=== PATIENT | male | born 1965 | race African-American/Black ===

== ENCOUNTER 2019-12-15 10:53 | Outpatient (CLI) | payer OTHER ==
--- NOTE | 2019-12-15 13:12 | RAD ---
2 VIEWS LUMBAR SPINE: Date: 12/15/2019 COMPARISON: None. HISTORY: Low back pain. FINDINGS: Clips in the right upper quadrant suggestion prior cholecystectomy. There is multilevel lower lumbar spine facet hypertrophy, most prominent at the L4-5 and L5-S1 levels. Anterior osteophyte formation a t L3-4. No acute fracture or dislocation. Lumbar pedicles appear intact on frontal imaging. IMPRESSION: Bilateral lower lumbar spine facet hypertrophy. No acute fracture or dislocation. If there are radicu lar symptoms, MRI advised. POS: OFF
== END 2019-12-15 10:54 | disposition home or self-care (01) ==
LOC: BICRAD 10:53
DX: M54.5 Low back pain (principal); M47.816 Spondylosis without myelopathy or radiculopathy, lumbar region
CPT/HCPCS: 72100

== ENCOUNTER 2020-02-03 21:28 | Inpatient (IN) | payer OTHER ==
[2020-02-03 22:51] LABS: #Lymphocytes 0.5 thou/uL (1.20-3.40); #Monocytes 0.7 thou/uL (0.11-0.59); #Neutrophils 3.8 thou/uL (1.40-6.50); %Basophils 0.4 % (0.0-1.0); %Eosinophils 0.3 % (0.0-10.0); %Lymphocytes 10.5 % (21.0-51.0); %Monocytes 13.5 % (0.0-10.0); %Neutrophils 75.4 % (42.0-75.0); Hemoglobin 16.2 g/dL (14.0-18.0); Mean Corpuscular HGB CONC 33.5 g/dL (32.0-36.0); Mean Corpuscular Hemoglobin 31.8 pg (27.0-31.0); Mean Corpuscular Volume 95.1 fL (78.0-98.0); Mean Platelet Volume 7.1 fL (7.4-10.4); Platelet Count 197 thou/uL (130-400); RBC Distribution Width 12.5 % (11.5-14.5); Red Blood Cell (RBC) Count 5.09 mill/uL (4.70-6.10); White Blood Cell (WBC) Count 5.1 thou/uL (4.8-10.8)
[2020-02-03 23:09] LABS: ALT (SGPT) 16 U/L (8-55); AST (SGOT) 23 U/L (5-34); Albumin 4.3 g/dL (3.5-5.0); Alkaline Phosphatase 82 U/L (40-110); Anion Gap 13 mmol/L (10-20); BUN (Urea Nitrogen) 7 mg/dL (8.4-25.7); Bilirubin, Total 0.5 mg/dL (0.2-1.2); Calc. Creatinine Clearance 0 mL/min (70-130); Calcium 9.7 mg/dL (7.8-10.44); Carbon Dioxide 25 mmol/L (22-29); Chloride 99 mmol/L (98-107); Estimated GFR-MDRD 79; Globulin 4.4 g/dL (2.4-3.5); Glucose 146 mg/dL (70-105); Potassium 4.2 mmol/L (3.5-5.1); Protein, Total 8.7 g/dL (6.0-8.3); Sodium 133 mmol/L (136-145)
--- NOTE | 2020-02-03 23:14 | RAD ---
PORTABLE CHEST: 02/03/20 PROVIDED CLINICAL HISTORY: Cough and fever. FINDINGS: Comparison 09/22/17. Cardiac and mediastinal silhouette is unchanged in appearance. No focal consolidation, pleural fluid or pneumothorax apparent. IMPRESSION: No evidence for an acute cardiopulmonary process. POS: RICHIE
[2020-02-03] MEDS ORDERED: Acetaminophen 500 MG TAB ONE (23:24)
[2020-02-04] MEDS ORDERED: Calcium Carbonate 500 MG ChewTAB PO PRN (02:10)
[2020-02-04] MEDS ORDERED: Ondansetron ODT 4 MG TAB PO PRN (02:10)
[2020-02-04] MEDS ORDERED: Acetaminophen 650 MG Suppository PR PRN (02:10)
[2020-02-04] MEDS ORDERED: Ondansetron PF 4 MG/2 ML Vial IVP PRN (02:10)
[2020-02-04] MEDS ORDERED: Guaifenesin DM 100-10/5 ML UDCUP PO PRN (02:21)
--- NOTE | 2020-02-04 02:25 | PDOC.HHP ---
Hospitalist HPI - History of Present Illness Cough x 3 days History of Present Illness: PCP: Dr Rae The patient is a 54/M with no significant PMH that presents for above complaint. The patient reports rhinorrhea, productive cough x 2-3 days. Then this evening, developed subjective fever and malaise. Started to feel short of breath. Denies chest pain, heart palpitations. Denies orthopnea or lower extremity swelling. Denies nausea, vomiting or diarrhea. Denies dysuria. Reports that his sister was recently diagnosed with COVID-19. He last came into contact with her approximately 10-14 days ago. ED Course: T 100.1F, BP 171/65, HR 89, RR 24, 92% RA - placed on 2L NC Sp02 94-97% CXR - WBC 5.1 Given 1gm tylenol Hospitalist ROS - Review of Systems Constitutional: reports: fever, malaise Eyes: denies: pain, vision change, conjunctivae inflammation, eyelid inflammation, redness, other ENT: reports: nose discharge. denies: ear pain, ear discharge, nose pain, throat pain, throat swelling Respiratory: reports: cough, shortness of breath. denies: hemoptysis, sputum, wheezing Cardiovascular: denies: chest pain, palpitations, orthopnea, edema, light headedness Gastrointestinal: denies: nausea, vomiting, abdominal pain, diarrhea, melena, hematochezia Genitourinary: denies: dysuria, frequency, incontinence, hematuria, retention, other Skin: denies: rash, lesions, nam[place], bruising, other Neurological: denies: numbness, incoordination, change in speech, confusion Hospitalist History - Past Medical History Source: patient Cardiac: reports: no pertinent history Pulmonary: reports: no pertinent history DEHORNER: reports: no pertinent history Gastrointestinal: reports: no pertinent history Heme/Onc: reports: no pertinent history Hepatobiliary: reports: no pertinent history Psych: reports: no pertinent history Musculoskeletal: reports: no pertinent history Rheumatologic: reports: no pertinent history Infectious Disease: reports: no pertinent history ENT: reports: no pertinent history Renal/: reports: no pertinent history Endocrine: reports: no pertinent history - Past Surgical History Past Surgical History: reports: Appendectomy, Cholecystectomy - Family History Family History: reports: no pertinent history (patient states unknown family history) - Social History Smoking Status: Current every day smoker Tobacco Type: cigarettes Alcohol: reports: None Drugs: reports: none Living Situation: With Family Occupation: Lives with mother in [place], disabled Activity level: independent ambulation - Exam General Appearance: NAD, ill appearing General - other findings: non toxic Eye: PERRL Eye - other findings: sclera injected bilaterally ENT: normocephalic atraumatic Neck: supple, no JVD Heart: RRR, no murmur, no gallops, no rubs, normal peripheral pulses Respiratory: no wheezes, no rales, no ronchi, no tachypnea Respiratory - other findings: diminished throughout Gastrointestinal: soft, non-tender, non-distended, normal bowel sounds, no guarding, no rigidity Extremities: no cyanosis, no edema Skin: no rashes Psychiatric: A&O x 3, flat affect, somnolent Hospitalist Results - Labs Result Diagrams: 02/03/20 22:27 02/03/20 22:27 Lab results: WBC 5.1 thou/uL (4.8-10.8) 02/03/20 22:27 Hgb 16.2 g/dL (14.0-18.0) 02/03/20 22:27 Hct 48.4 % (42.0-52.0) 02/03/20 22: MCV 95.1 fL (78.0-98.0) 02/03/20 22:27 Plt Count 197 thou/uL (130-400) 02/03/20 22:27 Neutrophils % 75.4 % (42.0-75.0) H 02/03/20 22:27 Sodium 133 mmol/L (136-145) L 02/03/20 22:27 Potassium 4.2 mmol/L (3.5-5.1) 02/03/20 22:27 Chloride 99 mmol/L (98-107) 02/03/20 22:27 Carbon Dioxide 25 mmol/L (22-29) 02/03/20 22:27 BUN 7 mg/dL (8.4-25.7) L 02/03/20 22:27 Creatinine 1.17 mg/dL (0.7-1.3) 02/03/20 22:27 Glucose 146 mg/dL (70-105) H 02/03/20 22:27 Calcium 9.7 mg/dL (7.8-10.44) 02/03/20 22:27 Total Bilirubin 0.5 mg/dL (0.2-1.2) 02/03/20 22:27 AST 23 U/L (5-34) 02/03/20 22:27 ALT 16 U/L (8-55) 02/03/20 22:27 Alkaline Phosphatase 82 U/L (40-110) 02/03/20 22:27 Serum Total Protein 8.7 g/dL (6.0-8.3) H 02/03/20 22:27 Albumin 4.3 g/dL (3.5-5.0) 02/03/20 22:27 - Radiology Interpretation Chest x-ray Status: report reviewed by tn Hospitalist H&P A/P - Problem (1) SOB (shortness of breath) Code(s): R06.02 - SHORTNESS OF BREATH Status: Acute Assessment and Plan: Admit to telemetry unit, observation status Expected length of stay less than 2 midnights Patient hypoxic, possible COVID exposure CXR negative COVID results pending Droplet isolation Supportive care, tylenol, oxygen Repeat CXR in am (2) Hypoxia Code(s): R09.02 - HYPOXEMIA Status: Acute Assessment and Plan: Patient maintaining sp02 94% 2l NC, no respiratory distress or increased WOB CXR negative COVID results pending Droplet isolation Supportive care, tylenol, oxygen Repeat CXR in am (3) Hyponatremia Code(s): E87.1 - HYPO-OSMOLALITY AND HYPONATREMIA Status: Acute Assessment and Plan: Mild, 133 Will recheck in am (4) Tobacco abuse Code(s): Z72.0 - TOBACCO USE Status: Chronic Assessment and Plan: 1ppd x 20 years unwilling to quit NRT Smoking cessation counseling - Plan Plan: DVT and GI prophylaxis Full Code ADDIE Jaiden Marcelo (mother) Discussed case with Dr. Danielle
[2020-02-04 05:50] LABS: Anion Gap 14 mmol/L (10-20); BUN (Urea Nitrogen) 9 mg/dL (8.4-25.7); Calc. Creatinine Clearance 127 mL/min (70-130); Calcium 9.6 mg/dL (7.8-10.44); Carbon Dioxide 23 mmol/L (22-29); Chloride 99 mmol/L (98-107); Estimated GFR-MDRD 87; Glucose 132 mg/dL (70-105); Potassium 4.3 mmol/L (3.5-5.1); Sodium 132 mmol/L (136-145)
[2020-02-04 05:53] LABS: Hemoglobin 16.1 g/dL (14.0-18.0); Mean Corpuscular HGB CONC 33.1 g/dL (32.0-36.0); Mean Corpuscular Hemoglobin 31.6 pg (27.0-31.0); Mean Corpuscular Volume 95.7 fL (78.0-98.0); RBC Distribution Width 12.5 % (11.5-14.5); Red Blood Cell (RBC) Count 5.08 mill/uL (4.70-6.10)
[2020-02-04 06:23] LABS: Band 3 % (5-11); Lymphocytes 26 % (21-51); MDiff Complete? YES; Mean Platelet Volume 7.1 fL (7.4-10.4); Monocytes 15 % (0-10); Neutrophil 55 % (42-75); Platelet Count 189 thou/uL (130-400); White Blood Cell (WBC) Count 3.3 thou/uL (4.8-10.8)
[2020-02-04] MEDS ORDERED: PROVENTIL INHALER 6.7 G (200 INHALATIONS) INH PRN (08:20)
[2020-02-04] MEDS ORDERED: Albuterol Sulfate 2.5 mg/3 ml Neb NEB PRN (08:25)
[2020-02-04] MEDS: Enoxaparin Sodium 40 MG/0.4 ML SYRINGE SC SCH (08:57)
[2020-02-04] MEDS: Multivit, Therapeutic 1 TAB PO SCH ×2 (08:57→10:36)
[2020-02-04] MEDS: Famotidine 20 MG TAB PO SCH ×2 (08:57→20:08)
[2020-02-04] MEDS ORDERED: Nicotine 14 MG PATCH TD SCH (09:00)
[2020-02-04] MEDS: Cefepime 1 GM in Sodium Chloride 0.9% 100 ML IVPB SCH ×2 (10:35→20:08)
[2020-02-04] MEDS: Doxycycline 100 MG CAP PO SCH ×2 (10:36→20:08)
[2020-02-04] MEDS: Saccharomyces boulardii 250 MG CAP PO SCH (10:36)
[2020-02-04] MEDS: Acetaminophen 325 MG TAB PO PRN (12:49)
[2020-02-05] MEDS: Acetaminophen 325 MG TAB PO PRN ×3 (04:10→23:30)
[2020-02-05 05:36] LABS: ALT (SGPT) 21 U/L (8-55); AST (SGOT) 36 U/L (5-34); Albumin 4.1 g/dL (3.5-5.0); Alkaline Phosphatase 76 U/L (40-110); Anion Gap 14 mmol/L (10-20); BUN (Urea Nitrogen) 12 mg/dL (8.4-25.7); Bilirubin, Total 0.4 mg/dL (0.2-1.2); CRP (Inflammatory) 0.66 mg/dL (= or < 0.5); Calc. Creatinine Clearance 109 mL/min (70-130); Calcium 9.3 mg/dL (7.8-10.44); Carbon Dioxide 24 mmol/L (22-29); Chloride 97 mmol/L (98-107); Estimated GFR-MDRD 73; Globulin 4.3 g/dL (2.4-3.5); Glucose 131 mg/dL (70-105); Potassium 4.3 mmol/L (3.5-5.1); Protein, Total 8.4 g/dL (6.0-8.3); Sodium 131 mmol/L (136-145)
[2020-02-05 05:50] LABS: Hemoglobin 16.9 g/dL (14.0-18.0); Mean Corpuscular HGB CONC 32.7 g/dL (32.0-36.0); Mean Corpuscular Hemoglobin 31.2 pg (27.0-31.0); Mean Corpuscular Volume 95.4 fL (78.0-98.0); Mean Platelet Volume 7.5 fL (7.4-10.4); Platelet Count 179 thou/uL (130-400); RBC Distribution Width 12.4 % (11.5-14.5); Red Blood Cell (RBC) Count 5.41 mill/uL (4.70-6.10); White Blood Cell (WBC) Count 3.8 thou/uL (4.8-10.8)
[2020-02-05 05:57] LABS: Band 5 % (5-11); Lymphocytes 42 % (21-51); MDiff Complete? YES; Monocytes 14 % (0-10); Neutrophil 39 % (42-75)
[2020-02-05] MEDS: Saccharomyces boulardii 250 MG CAP PO SCH (08:33)
[2020-02-05] MEDS: Multivit, Therapeutic 1 TAB PO SCH ×2 (08:33→10:08)
[2020-02-05] MEDS: Famotidine 20 MG TAB PO SCH ×2 (08:33→20:40)
[2020-02-05] MEDS: Doxycycline 100 MG CAP PO SCH ×2 (08:33→20:40)
[2020-02-05] MEDS: Enoxaparin Sodium 40 MG/0.4 ML SYRINGE SC SCH (08:34)
[2020-02-05] MEDS: Cefepime 1 GM in Sodium Chloride 0.9% 100 ML IVPB SCH ×2 (10:11→20:40)
--- NOTE | 2020-02-05 12:22 | PDOC.HOSPP ---
- Subjective Encounter Date: 02/05/20 Encounter Time: 10:45 Subjective: feels better, no sob is ambulating in room wants to go home - Objective Vital Signs & Weight: Vital Signs (12 hours) Temp Pulse Resp BP BP Pulse Ox 02/05/20 07:45 99.2 F 72 16 97/52 L 95 02/05/20 04:07 100 F H 79 18 119/58 L 97 Weight Weight 249 lb 14.4 oz I&O: 02/04/20 02/05/20 02/06/20 06:59 06:59 06:59 Intake Total 100 Output Total 500 Balance 100 -500 Result Diagrams: 02/05/20 04:58 02/05/20 04:58 Hospitalist ROS - Medication Medications: Active Medications Generic Name Dose Route Start Last Admin Trade Name Freq PRN Reason Stop Dose Admin Acetaminophen 650 mg 02/04/20 02:10 02/05/20 04:10 Tylenol PO 650 mg Q4H PRN Administration Headache/Fever/Mild Pain (1-3) Doxycycline Hyclate 100 mg 02/04/20 09:00 02/05/20 08:33 Vibramycin PO 100 mg BID MARY Administration Enoxaparin Sodium 40 mg 02/04/20 09:00 02/05/20 08:34 Lovenox SC 40 mg 0900 MARY Administration Famotidine 20 mg 02/04/20 09:00 02/05/20 08:33 Pepcid PO 20 mg BID MARY Administration Cefepime HCl 1 gm/ Sodium 100 mls @ 200 mls/hr 02/04/20 09:00 02/05/20 10:11 Chloride IVPB 100 mls 0900,2100 MARY Administration Multivitamins 1 tab 02/04/20 09:00 02/05/20 08:33 Theragran PO 1 tab DAILY MARY Administration Multivitamins 1 tab 02/04/20 09:00 02/05/20 10:08 Theragran PO Not Given DAILY MARY Saccharomyces Boulardii 250 mg 02/04/20 09:00 02/05/20 08:33 Florastor PO 250 mg DAILY MARY Administration Sodium Chloride 10 ml 02/04/20 02:10 02/05/20 10:12 Flush - Normal Saline IVF 10 ml PRN PRN Administration Saline Flush - Exam General Appearance: awake alert Eye: PERRL, anicteric sclera ENT: no oropharyngeal lesions, moist mucosa Neck: supple, no JVD Heart: RRR, no murmur Respiratory: no wheezes, no rales Gastrointestinal: soft, non-tender, non-distended, normal bowel sounds Extremities: no cyanosis, no edema Neurological: cranial nerve grossly intact, no focal deficits Psychiatric: normal affect, A&O x 3 Hosp A/P (1) COVID-19 Code(s): U07.1 - COVID-19 Status: Suspected (2) Acute respiratory failure with hypoxemia Code(s): J96.01 - ACUTE RESPIRATORY FAILURE WITH HYPOXIA Status: Acute (3) Obesity Code(s): E66.9 - OBESITY, UNSPECIFIED Status: Chronic Qualifiers: Obesity classification: adult class 3 (BMI >= 40) Body mass index: BMI 40.0 -44.9 (4) Tobacco use Code(s): Z72.0 - TOBACCO USE Status: Chronic - Plan is stable on nasal oxygen await covid results on doxy, cefepime his sister was +ve for covid and mother is hospitalized awaiting her covid results as well is ambulating in room hemostable tmax of 100
[2020-02-06] MEDS: Doxycycline 100 MG CAP PO SCH (08:05)
[2020-02-06] MEDS: Cefepime 1 GM in Sodium Chloride 0.9% 100 ML IVPB SCH (08:05)
[2020-02-06] MEDS: Famotidine 20 MG TAB PO SCH ×2 (08:06→20:35)
[2020-02-06] MEDS: Enoxaparin Sodium 40 MG/0.4 ML SYRINGE SC SCH (08:06)
[2020-02-06] MEDS: Saccharomyces boulardii 250 MG CAP PO SCH (08:06)
[2020-02-06] MEDS: Multivit, Therapeutic 1 TAB PO SCH ×2 (08:06)
--- NOTE | 2020-02-06 10:21 | PDOC.HOSPP ---
- Subjective Encounter Date: 02/06/20 Encounter Time: 09:30 Subjective: has fever, no sob or cough or chest pain is eating and ambulating in room - Objective Vital Signs & Weight: Vital Signs (12 hours) Temp Pulse Resp BP BP Pulse Ox 02/06/20 07:54 99.3 F 89 18 135/61 94 L 02/06/20 06:36 99.4 F 02/06/20 04:35 100.2 F H 89 18 111/54 L 93 L 02/05/20 23:23 100.3 F H 87 18 129/53 L 92 L Weight Weight 249 lb 14.4 oz I&O: 02/05/20 02/06/20 02/07/20 06:59 06:59 06:59 Output Total 500 Balance -500 Result Diagrams: 02/05/20 04:58 02/05/20 04:58 Hospitalist ROS - Medication Medications: Active Medications Generic Name Dose Route Start Last Admin Trade Name Freq PRN Reason Stop Dose Admin Acetaminophen 650 mg 02/04/20 02:10 02/05/20 23:30 Tylenol PO 650 mg Q4H PRN Administration Headache/Fever/Mild Pain (1-3) Doxycycline Hyclate 100 mg 02/04/20 09:00 02/06/20 08:05 Vibramycin PO 100 mg BID MARY Administration Enoxaparin Sodium 40 mg 02/04/20 09:00 02/06/20 08:06 Lovenox SC 40 mg 0900 MARY Administration Famotidine 20 mg 02/04/20 09:00 02/06/20 08:06 Pepcid PO 20 mg BID MARY Administration Cefepime HCl 1 gm/ Sodium 100 mls @ 200 mls/hr 02/04/20 09:00 02/06/20 08:05 Chloride IVPB 100 mls 0900,2100 MARY Administration Multivitamins 1 tab 02/04/20 09:00 02/06/20 08:06 Theragran PO 1 tab DAILY AMRY Administration Multivitamins 1 tab 02/04/20 09:00 02/06/20 08:06 Theragran PO Not Given DAILY MARY Saccharomyces Boulardii 250 mg 02/04/20 09:00 02/06/20 08:06 Florastor PO 250 mg DAILY MARY Administration Sodium Chloride 10 ml 02/04/20 02:10 02/05/20 20:40 Flush - Normal Saline IVF 10 ml PRN PRN Administration Saline Flush - Exam General Appearance: awake alert Eye: PERRL, anicteric sclera ENT: no oropharyngeal lesions, moist mucosa Neck: supple, no JVD Heart: RRR, no murmur Respiratory: no wheezes, no rales Gastrointestinal: soft, non-tender, non-distended, normal bowel sounds Extremities: no cyanosis, no edema Neurological: cranial nerve grossly intact, no focal deficits Psychiatric: normal affect, A&O x 3 Hosp A/P (1) COVID-19 Code(s): U07.1 - COVID-19 Status: Suspected (2) Acute respiratory failure with hypoxemia Code(s): J96.01 - ACUTE RESPIRATORY FAILURE WITH HYPOXIA Status: Acute (3) Obesity Code(s): E66.9 - OBESITY, UNSPECIFIED Status: Chronic Qualifiers: Obesity classification: adult class 3 (BMI >= 40) Body mass index: BMI 40.0 -44.9 (4) Tobacco use Code(s): Z72.0 - TOBACCO USE Status: Chronic (5) DM type 2 (diabetes mellitus, type 2) Status: Suspected Qualifiers: Diabetes mellitus buttermaker continuous churn insulin use: without buttermaker continuous churn use - Plan is stable on nasal oxygen await covid results on doxy, cefepime his sister was +ve for covid and is in icu at [facility] and mother is hospitalized here awaiting her covid results as well is ambulating in room hemostable tmax of 100 Has high likelyhood of covid 19, if first test is -ve he can go home in am and quarantine for 12 days in total isolation says he can cook for himself and has his siblings to check on him on phone to see if he is doing ok if dc'd home he has to come out of nasal canula oxygen prior to dc or repeat cxr will be done to see if his lung findings are stable for home O2 if needed. Hb A1c, ferritin and crp levels in am
[2020-02-06] MEDS ORDERED: Hydroxychloroquine Sulfate 200 MG TAB PO SCH ×2 (12:15→21:00)
[2020-02-06 13:21] LABS: Hemoglobin 17.1 g/dL (14.0-18.0); Mean Corpuscular HGB CONC 33.5 g/dL (32.0-36.0); Mean Corpuscular Hemoglobin 31.9 pg (27.0-31.0); Mean Corpuscular Volume 95.4 fL (78.0-98.0); Mean Platelet Volume 7.6 fL (7.4-10.4); Platelet Count 177 thou/uL (130-400); RBC Distribution Width 12.5 % (11.5-14.5); Red Blood Cell (RBC) Count 5.36 mill/uL (4.70-6.10); White Blood Cell (WBC) Count 3.9 thou/uL (4.8-10.8)
[2020-02-06 13:40] LABS: ALT (SGPT) 25 U/L (8-55); AST (SGOT) 44 U/L (5-34); Albumin 4.1 g/dL (3.5-5.0); Alkaline Phosphatase 70 U/L (40-110); Anion Gap 11 mmol/L (10-20); BUN (Urea Nitrogen) 14 mg/dL (8.4-25.7); Bilirubin, Total 0.4 mg/dL (0.2-1.2); CRP (Inflammatory) 0.96 mg/dL (= or < 0.5); Calc. Creatinine Clearance 99 mL/min (70-130); Calcium 9.5 mg/dL (7.8-10.44); Carbon Dioxide 28 mmol/L (22-29); Chloride 99 mmol/L (98-107); Estimated GFR-MDRD 65; Globulin 4.4 g/dL (2.4-3.5); Glucose 140 mg/dL (70-105); Potassium 4.3 mmol/L (3.5-5.1); Protein, Total 8.5 g/dL (6.0-8.3); Sodium 134 mmol/L (136-145)
[2020-02-06 13:47] LABS: Band 5 % (5-11); Lymphocytes 37 % (21-51); MDiff Complete? YES; Monocytes 17 % (0-10); Neutrophil 30 % (42-75); Platelet Morphology Comment Appears Adequate; Polychromasia SLIGHT = 2-3 cells (100X) (0-2/hpf); Reactive Lymphocytes 11 % (0-10)
[2020-02-06] MEDS: Acetaminophen 325 MG TAB PO PRN (16:09)
--- NOTE | 2020-02-06 16:25 | CON ---
DATE OF CONSULTATION: 02/06/2020 REASON FOR CONSULTATION: COVID-19 infection. HISTORY OF PRESENT ILLNESS: A 54-year-old with new onset of cough, fever, general malaise, myalgias. His entire family has tested positive for COVID-19 and both are admitted to the hospitals in the area. He has some rhinorrhea. No dyspnea. No abdominal pain. No diarrhea. PAST MEDICAL HISTORY: Includes: 1. Cholecystectomy. 2. Appendectomy. SOCIAL HISTORY: Current smoker. ALLERGIES: NONE. CURRENT MEDICATIONS: 1. P.r.n. medications. 2. Pepcid. 3. Plaquenil. PHYSICAL EXAMINATION: VITAL SIGNS: T-max 100.3, blood pressure 120/60, pulse 83, respirations 16, and O2 saturation 93 to 94 on room air. GENERAL: He does not appear in distress, coughing intermittently. HEENT: Ocular movements conjugate. SKIN: Normal peripheral IV access. LUNGS: No wheezing or inspiratory crackles. ABDOMEN: Soft and nontender. NEUROLOGIC: Nonfocal neuro examination. LABORATORY DATA: White cell count 3.9, hemoglobin 17, platelets 177, 30% neutrophils, 5% bands, 37% lymphocytes, total lymphocyte count 0.5 and now is around 900. Creatinine was 1.08, now 1.39. Ferritin 566. Procalcitonin 0.07. CRP was 0.96. COVID detected. ASSESSMENT AND DISCUSSION: 1. Obesity. 2. Chronic smoking. 3. [id number]-ry-[id number] COVID-19 infection. The patient to continue with supportive measures and he has been started on Plaquenil. Monitor D-dimer, CRP, ferritin, and oximetry. Job ID: [id number]
[2020-02-07] MEDS: Acetaminophen 325 MG TAB PO PRN ×3 (00:52→22:36)
[2020-02-07 05:01] LABS: Hemoglobin A1c 7.4 % (4.0-6.0)
[2020-02-07 05:18] LABS: ALT (SGPT) 28 U/L (8-55); AST (SGOT) 58 U/L (5-34); Alkaline Phosphatase 67 U/L (40-110); Anion Gap 11 mmol/L (10-20); BUN (Urea Nitrogen) 15 mg/dL (8.4-25.7); Bilirubin, Total 0.4 mg/dL (0.2-1.2); CRP (Inflammatory) 1.25 mg/dL (= or < 0.5); Calc. Creatinine Clearance 95 mL/min (70-130); Calcium 9.4 mg/dL (7.8-10.44); Carbon Dioxide 28 mmol/L (22-29); Chloride 99 mmol/L (98-107); Estimated GFR-MDRD 61; Globulin 4.4 g/dL (2.4-3.5); Glucose 144 mg/dL (70-105); Potassium 4.1 mmol/L (3.5-5.1); Protein, Total 8.4 g/dL (6.0-8.3); Sodium 134 mmol/L (136-145)
[2020-02-07 05:44] LABS: Hemoglobin 16.3 g/dL (14.0-18.0); Mean Corpuscular Hemoglobin 32.1 pg (27.0-31.0); Mean Corpuscular Volume 94.5 fL (78.0-98.0); Mean Platelet Volume 7.5 fL (7.4-10.4); Platelet Count 171 thou/uL (130-400); RBC Distribution Width 12.5 % (11.5-14.5); Red Blood Cell (RBC) Count 5.07 mill/uL (4.70-6.10); White Blood Cell (WBC) Count 3.8 thou/uL (4.8-10.8)
[2020-02-07 06:19] LABS: Band 3 % (5-11); Eosinophils 1 % (0-10); Lymphocytes 47 % (21-51); MDiff Complete? YES; Monocytes 20 % (0-10); Neutrophil 27 % (42-75); Reactive Lymphocytes 2 % (0-10)
[2020-02-07] MEDS: Enoxaparin Sodium 40 MG/0.4 ML SYRINGE SC SCH (09:31)
[2020-02-07] MEDS: Famotidine 20 MG TAB PO SCH ×2 (09:32→22:00)
[2020-02-07] MEDS: Hydroxychloroquine Sulfate 200 MG TAB PO SCH ×2 (09:32→22:00)
[2020-02-07] MEDS: Saccharomyces boulardii 250 MG CAP PO SCH (09:32)
[2020-02-07] MEDS: Multivit, Therapeutic 1 TAB PO SCH ×2 (09:32)
--- NOTE | 2020-02-07 10:56 | PDOC.HOSPP ---
- Subjective Encounter Date: 02/07/20 Encounter Time: 09:45 Subjective: no sob, has fever is able to ambulate and eat well no new complaints new onset dm#2, mild htn, obesity, is at risk for complications is on hydroxychloroquine - Objective Vital Signs & Weight: Vital Signs (12 hours) Temp Pulse Resp BP BP Pulse Ox 02/07/20 09:28 99.1 F 82 18 140/65 94 L 02/07/20 03:20 91 L 02/07/20 03:06 99.7 F H 84 16 135/66 91 L 02/07/20 00:00 102.2 F H 100 18 123/60 96 Weight Weight 252 lb 3.2 oz I&O: 02/06/20 02/07/20 02/08/20 06:59 06:59 06:59 Intake Total 460 Balance 460 Result Diagrams: 02/07/20 04:44 02/07/20 04:44 Additional Labs: Accuchecks 02/06/20 20:55 POC Glucose 155 H Hospitalist ROS - Medication Medications: Active Medications Generic Name Dose Route Start Last Admin Trade Name Freq PRN Reason Stop Dose Admin Acetaminophen 650 mg 02/04/20 02:10 02/07/20 00:52 Tylenol PO 650 mg Q4H PRN Administration Headache/Fever/Mild Pain (1-3) Enoxaparin Sodium 40 mg 02/04/20 09:00 02/07/20 09:31 Lovenox SC 40 mg 0900 MARY Administration Famotidine 20 mg 02/04/20 09:00 02/07/20 09:32 Pepcid PO 20 mg BID MARY Administration Hydroxychloroquine Sulfate 200 mg 02/07/20 09:00 02/07/20 09:32 Plaquenil PO 02/12/20 21:01 200 mg BID MARY Administration Multivitamins 1 tab 02/04/20 09:00 02/07/20 09:32 Theragran PO 1 tab DAILY MARY Administration Multivitamins 1 tab 02/04/20 09:00 02/07/20 09:32 Theragran PO Not Given DAILY MARY Saccharomyces Boulardii 250 mg 02/04/20 09:00 02/07/20 09:32 Florastor PO 250 mg DAILY MARY Administration Sodium Chloride 10 ml 02/04/20 02:10 04/11/20 20:40 Flush - Normal Saline IVF 10 ml PRN PRN Administration Saline Flush - Exam General Appearance: awake alert Eye: PERRL, anicteric sclera ENT: no oropharyngeal lesions, moist mucosa Neck: supple, no JVD Heart: RRR, no murmur Respiratory: no wheezes, no rales Gastrointestinal: soft, non-tender, non-distended, normal bowel sounds Extremities: no cyanosis, no edema Neurological: cranial nerve grossly intact, no focal deficits Psychiatric: A&O x 3 Hosp A/P (1) COVID-19 Code(s): U07.1 - COVID-19 Status: Acute (2) Acute respiratory failure with hypoxemia Code(s): J96.01 - ACUTE RESPIRATORY FAILURE WITH HYPOXIA Status: Acute (3) Obesity Code(s): E66.9 - OBESITY, UNSPECIFIED Status: Chronic Qualifiers: Obesity classification: adult class 3 (BMI >= 40) Body mass index: BMI 40.0 -44.9 (4) Tobacco use Code(s): Z72.0 - TOBACCO USE Status: Chronic (5) DM type 2 (diabetes mellitus, type 2) Status: Acute Qualifiers: Diabetes mellitus termite exterminator insulin use: without termite exterminator use (6) HTN (hypertension) Code(s): I10 - ESSENTIAL (PRIMARY) HYPERTENSION Status: Acute Qualifiers: Hypertension type: essential hypertension Qualified Code(s): I10 - Essential (primary) hypertension - Plan is stable on nasal oxygen covid 19 +ve, is on hydroxychloroquine newly diagnosed dm#2, mild htn his sister was +ve for covid and is in icu at [facility] and mother is hospitalized here with +ve covid as well is ambulating in room hemostable tmax of 100 covid 19 markers are high
[2020-02-07] MEDS ORDERED: Albuterol 200 PUFF (6.7GM INHALER) INH PRN (12:10)
[2020-02-07] MEDS ORDERED: HumaLOG 300 UNITS/3 ML VIAL SC PRN (12:59)
[2020-02-07] MEDS ORDERED: Dextrose 50% Abboject 50 ML SYRINGE SLOW IVP PRN (12:59)
[2020-02-07] MEDS ORDERED: Dextrose 5% in Water 1,000 ML IV PRN (12:59)
[2020-02-07] MEDS ORDERED: Bisacodyl 10 MG SUPP PR PRN (13:00)
[2020-02-07] MEDS ORDERED: Fleet Enema 133 ML BOT PR PRN (13:00)
[2020-02-07] MEDS ORDERED: Senokot 8.6 MG TAB PO PRN (13:01)
[2020-02-07] MEDS: Docusate 100 MG CAP PO SCH (22:00)
[2020-02-08 04:54] VITALS: BMI 41.8
[2020-02-08] MEDS ORDERED: Polyethylene Glycol 3350 17 GM Packet PO SCH (09:00)
[2020-02-08 10:03] LABS: #Lymphocytes 1.1 thou/uL (1.20-3.40); #Monocytes 0.4 thou/uL (0.11-0.59); #Neutrophils 1.3 thou/uL (1.40-6.50); %Basophils 0.2 % (0.0-1.0); %Eosinophils 0.4 % (0.0-10.0); %Lymphocytes 39.5 % (21.0-51.0); %Monocytes 13.1 % (0.0-10.0); %Neutrophils 46.9 % (42.0-75.0); Hemoglobin 16.6 g/dL (14.0-18.0); Mean Corpuscular HGB CONC 33.3 g/dL (32.0-36.0); Mean Corpuscular Hemoglobin 31.9 pg (27.0-31.0); Mean Corpuscular Volume 95.8 fL (78.0-98.0); Mean Platelet Volume 7.8 fL (7.4-10.4); Platelet Count 149 thou/uL (130-400); RBC Distribution Width 12.5 % (11.5-14.5); Red Blood Cell (RBC) Count 5.19 mill/uL (4.70-6.10); White Blood Cell (WBC) Count 2.9 thou/uL (4.8-10.8)
[2020-02-08] MEDS: Famotidine 20 MG TAB PO SCH (10:07)
[2020-02-08] MEDS: Saccharomyces boulardii 250 MG CAP PO SCH (10:08)
[2020-02-08] MEDS: Hydroxychloroquine Sulfate 200 MG TAB PO SCH (10:08)
[2020-02-08] MEDS: Multivit, Therapeutic 1 TAB PO SCH (10:08)
[2020-02-08] MEDS: Docusate 100 MG CAP PO SCH (10:09)
[2020-02-08] MEDS: Enoxaparin Sodium 40 MG/0.4 ML SYRINGE SC SCH (10:09)
[2020-02-08] MEDS: Acetaminophen 325 MG TAB PO PRN (10:10)
[2020-02-08 10:18] LABS: ALT (SGPT) 35 U/L (8-55); AST (SGOT) 83 U/L (5-34); Albumin 3.9 g/dL (3.5-5.0); Alkaline Phosphatase 61 U/L (40-110); Anion Gap 13 mmol/L (10-20); BUN (Urea Nitrogen) 13 mg/dL (8.4-25.7); Bilirubin, Total 0.5 mg/dL (0.2-1.2); CRP (Inflammatory) 1.88 mg/dL (= or < 0.5); Calc. Creatinine Clearance 115 mL/min (70-130); Calcium 9.3 mg/dL (7.8-10.44); Carbon Dioxide 26 mmol/L (22-29); Chloride 100 mmol/L (98-107); Estimated GFR-MDRD 77; Globulin 4.3 g/dL (2.4-3.5); Glucose 170 mg/dL (70-105); Potassium 4.1 mmol/L (3.5-5.1); Protein, Total 8.2 g/dL (6.0-8.3); Sodium 135 mmol/L (136-145)
--- NOTE | 2020-02-08 10:56 | PDOC.HOSPP ---
- Subjective Encounter Date: 02/08/20 Encounter Time: 08:35 Subjective: no sob or palp is amb in room eating well - Objective Vital Signs & Weight: Vital Signs (12 hours) Temp Pulse Resp BP BP Pulse Ox 02/08/20 10:03 100.4 F H 84 17 131/61 96 02/08/20 04:00 99.7 F H 74 17 117/57 L 95 02/08/20 00:00 99.8 F H 83 19 120/62 95 Weight Weight 251 lb I&O: 02/07/20 02/08/20 02/09/20 06:59 06:59 06:59 Intake Total 460 1000 Balance 460 1000 Result Diagrams: 02/08/20 09:42 02/08/20 09:42 Additional Labs: Accuchecks 02/08/20 02/07/20 10:21 22:27 POC Glucose 162 H 123 H Hospitalist ROS - Medication Medications: Active Medications Generic Name Dose Route Start Last Admin Trade Name Freq PRN Reason Stop Dose Admin Acetaminophen 650 mg 02/04/20 02:10 02/08/20 10:10 Tylenol PO 650 mg Q4H PRN Administration Headache/Fever/Mild Pain (1-3) Docusate Sodium 100 mg 02/07/20 21:00 02/08/20 10:09 Colace PO Not Given BID [facility] Enoxaparin Sodium 40 mg 02/04/20 09:00 02/08/20 10:09 Lovenox SC 40 mg 0900 MARY Administration Famotidine 20 mg 02/04/20 09:00 02/08/20 10:07 Pepcid PO 20 mg BID MARY Administration Hydroxychloroquine Sulfate 200 mg 02/07/20 09:00 02/08/20 10:08 Plaquenil PO 02/12/20 21:01 200 mg BID MARY Administration Multivitamins 1 tab 02/04/20 09:00 02/08/20 10:08 Theragran PO 1 tab DAILY MARY Administration Ondansetron HCl 4 mg 02/04/20 02:10 02/07/20 22:41 Zofran Odt PO 4 mg Q6H PRN Administration Nausea/Vomiting Polyethylene Glycol 17 gm 02/08/20 09:00 02/08/20 10:09 Miralax PO Not Given DAILY [facility] Saccharomyces Boulardii 250 mg 02/04/20 09:00 02/08/20 10:08 Florastor PO 250 mg DAILY MARY Administration Sodium Chloride 10 ml 02/04/20 02:10 02/05/20 20:40 Flush - Normal Saline IVF 10 ml PRN PRN Administration Saline Flush - Exam General Appearance: awake alert Eye: PERRL, anicteric sclera ENT: no oropharyngeal lesions, moist mucosa Neck: supple, no JVD Heart: RRR, no murmur Respiratory: no wheezes, rhonchi Gastrointestinal: soft, non-tender, non-distended, normal bowel sounds Extremities: no cyanosis, no edema Neurological: cranial nerve grossly intact, no focal deficits Psychiatric: normal affect, A&O x 3 Hosp A/P (1) COVID-19 Code(s): U07.1 - COVID-19 Status: Acute (2) Acute respiratory failure with hypoxemia Code(s): J96.01 - ACUTE RESPIRATORY FAILURE WITH HYPOXIA Status: Acute (3) Obesity Code(s): E66.9 - OBESITY, UNSPECIFIED Status: Chronic Qualifiers: Obesity classification: adult class 3 (BMI >= 40) Body mass index: BMI 40.0 -44.9 (4) Tobacco use Code(s): Z72.0 - TOBACCO USE Status: Chronic (5) DM type 2 (diabetes mellitus, type 2) Status: Acute Qualifiers: Diabetes mellitus long-term insulin use: without long-term use (6) HTN (hypertension) Code(s): I10 - ESSENTIAL (PRIMARY) HYPERTENSION Status: Acute Qualifiers: Hypertension type: essential hypertension Qualified Code(s): I10 - Essential (primary) hypertension - Plan is stable on room air now. covid 19 +ve, is on hydroxychloroquine newly diagnosed dm#2, mild htn his sister was +ve for covid and is in icu at [facility] and mother is hospitalized here with +ve covid as well is ambulating in room hemostable tmax of 100 covid 19 activity markers are progressively going up. DC plan per adv
[2020-02-08] MEDS ORDERED: glipiZIDE 5 MG TAB PO SCH (11:30)
[2020-02-08 15:12] VITALS: BP 136/64; TEMP 99.3
--- NOTE | 2020-02-08 16:24 | PRG ---
DATE OF SERVICE: 02/08/2020 SUBJECTIVE: Sitting by the bedside, feeling good. No more cough. No headaches. No diarrhea. No pain. OBJECTIVE: VITAL SIGNS: Still having intermittent temperature elevation. Last time was 100.4 at 10:00 a.m., he is not tachycardic, is breathing anywhere from 12 to 22, O2 saturations are holding at 93% to 96%. GENERAL: He is awake, alert, oriented. LUNGS: Clear. HEART: S1 and S2. Regular rate. ABDOMEN: Soft, not distended. LABORATORY DATA: Ferritin is 895. CRP is 1.88. ASSESSMENT AND DISCUSSION: COVID-19 with apparent clinical improvement. I think his markers are not too high and I think he is eligible for discharge planning. I will follow up with him in the outpatient setting. Job ID: [id number]
[2020-02-09] MEDS ORDERED: glipiZIDE 5 MG TAB PO SCH (07:30)
--- NOTE | 2020-02-09 13:07 | DIS ---
DATE OF ADMISSION: 02/04/2020 DATE OF DISCHARGE: 02/08/2020 DISCHARGE DISPOSITION: Home under quarantine. PRIMARY DISCHARGE DIAGNOSES: 1. COVID-19 positive acute respiratory failure with hypoxia, resolved. 2. New onset diabetes mellitus. 3. Obesity. 4. Hypertension. 5. Tobacco abuse. PROCEDURES DONE DURING HOSPITALIZATION: Chest x-ray on admission showed no acute cardiopulmonary abnormality. Initial white count of 5, H and H 16 and 48, platelet count 197 on the day of admission with 75% neutrophils, 10.5% lymphocytes, 13.5% monocytes. Discharge white count of 2.9, H and H 16 and 49, platelet count 149 , MCV 95, discharge neutrophils of 46%, discharge lymphocytes of 39%, monocytes 13%. D-dimer was 0.63 on the day of discharge. BUN 13. Creatinine 1.20 on the day of discharge. HBA1c 7.4. Ferritin on the day of discharge was 895. Admitting ferritin was 425. CRP on the day of discharge 1.88. Admitting CRP was 0.66. Procalcitonin was 0.07 ng/mL. Discharge AST 83. Admitting AST was 23. Discharge ALT 35. Admitting ALT was 16. Total bilirubin 0.5, alkaline phosphatase 61, albumin 3.9. COVID-19 PCR was positive. DISCHARGE MEDICATIONS: 1. Hydroxychloroquine 200 mg p.o. twice daily for 5 more days. 2. DuoNeb 4 times daily p.r.n. 3. Glipizide 5 mg daily. 4. Albuterol inhaler 2 puffs q.4 hourly p.r.n. 5. Tylenol 650 mg q.8 hourly p.r.n. ALLERGIES: NO KNOWN DRUG ALLERGIES. INPATIENT CONSULT: Dr. Daniels for Infectious Disease. DISCHARGE PLAN: The patient to follow up with his primary care physician, Dr. Rae, in 1 week. He needs to follow up with Dr. Daniels on 02/10/2020. BRIEF COURSE DURING HOSPITALIZATION: The patient initially came to ER on February 03 with complaints of rhinorrhea, productive cough from last 2 to 3 days, and fever along with generalized weakness. He had shortness of breath. No vomiting or diarrhea. He did not have chest pain or palpitations. The patient had known exposure to COVID-19 with his sister who is being hospitalized at [facility] in the ICU. The patient's mother was also hospitalized here with COVID-19 pneumonia. He had a temperature of 100 degrees on arrival and was hypoxic and had to be placed on 2 L nasal cannula with saturations promptly raising up to 94%. His BMI was 41. He had inflammatory markers closely monitored on a daily basis. The patient's fever has been ranging anywhere from 99 to 101.3. He was also newly diagnosed with diabetes mellitus type 2 during this hospitalization. He remained hemodynamically stable. He is ambulating and eating well. His shortness of breath has completely resolved and is saturating 96% on room air on the day of discharge. He was placed on hydroxychloroquine after his COVID was positive. On clinical exam, his lungs were clear. The patient was wanting to go home. He was strongly counseled to remain in strict quarantine and not to spread the disease to anybody else. He had apartment for himself and was not living with anybody else. He has good social support system as well. Mr. Marcelo was evaluated by Dr. Daniels for Infectious Disease as well. As he remained hemodynamically stable and ambulating well with complete resolution of his hypoxia, the patient was deemed appropriate for discharge. He has been advised to be in complete and strict quarantine for another 12-13 days. He will also be closely followed up in the outpatient setting by Dr. Daniels with 1st appointment tomorrow which will be likely a telemedicine appointment. Mr. Marcelo also needs to follow up with his primary care physician, Dr. Rae, in a week, likely this will be through a telemedicine appointment as well. Please see a [id number] documentation for the day of discharge on [place]. I have informed charge nurse of the patient's discharge plans and if there is any need to inform the health department which needs to be done so prior to discharge to contain spread of COVID-19 for contact tracing and close monitoring. Job ID: [id number] MTDD
--- NOTE | 2020-02-10 10:37 | PQF ---
CLINICAL DOCUMENTATION IMPROVEMENT CLARIFICATION FORM: ICD-10 Updated PLEASE DO AN ADDENDUM TO THE PROGRESS NOTE WITH ANY DOCUMENTATION UPDATES OR ADDITIONS AND CARRY THROUGH TO DC SUMMARY. THANK YOU. DATE: 02/10/2020 ATTN: Dr. Vargas Please exercise your independent, professional judgment in responding to the clarification form. Clinical indicators are provided on the bottom of this form for your review Please check appropriate box(es): [ x ] Sepsis present on admission [ ] Sepsis NOT present on admission [ ] Unable to determine Due to:__covid 19 pneumonia [ ] Severe sepsis present on admission [ ] Severe Sepsis NOT present on admission [ ] Unable to determine with acute organ dysfunction of: [ ] Localized infection without sepsis [ ] Other diagnosis [ ] Unable to determine For continuity of documentation, please document condition throughout progress notes and discharge summary. Thank You. CLINICAL INDICATORS - SIGNS / SYMPTOMS / LABS / RESULTS AND LOCATION IN MR H&P 02/03: T 100.1, BP 171/65, HR 89, RR 24, 92% RA - placed on 2L NC SpO2 94-97% WBC 5.1 02/07 (Sam) WBC 2.9 COVID-19 Acute respiratory failure with hypoxemia 02/04 02/07 LAB: CRP 0.66 1.88 RISKS: 02/04 (Sam) COVID-19. Acute respiratory failure with hypoxemia. 02/06 (Sam) new onset dm#2 TREATMENT: Order 02/03: Resp. O2 to keep sats 92%. Pulse ox Continuous Order 02/03 - 02/05: Cefepime 1 gm IV 0900, 2100 Order 02/03-02/05: Doxycycline 100mg po BID ID Consult 02/05 Order 02/05: Hydroxychloroquine Sulfate 400 mg po BID Thank you, Griselda (This form is maintained as a part of the permanent medical record) 2014 [employer]. All Rights Reserved Griselda Simon RN, BSN [email or web address]
== END 2020-02-08 17:44 | disposition home or self-care (01) | DRG 871 ==
LOC: ERS 21:28 → 2SW 02-04 02:35 → OBSVTOIN 02-04 02:35
PROVIDERS: ADMIT Internal Medicine; ATTEND Internal Medicine
PROC: 8E0ZXY6 Isolation (ICD-10-PCS; principal; 2020-02-04)
DX: A41.89 Other specified sepsis (principal); U07.1 COVID-19; J96.01 Acute respiratory failure with hypoxia; Z68.41 Body mass index [BMI] 40.0-44.9, adult; E87.1 Hypo-osmolality and hyponatremia; E11.9 Type 2 diabetes mellitus without complications; E66.9 Obesity, unspecified; I10 Essential (primary) hypertension; F17.210 Nicotine dependence, cigarettes, uncomplicated; Z79.4 Long term (current) use of insulin; Z90.49 Acquired absence of other specified parts of digestive tract
CPT/HCPCS: 36415; 36416; 71045; 80048; 80053; 82728; 83036; 83735; 84145; 85025; 85379; 86140; 87635; 94760; J0692; J1650; J2405; J3490; Q0162; U0002

== ENCOUNTER 2020-02-12 02:02 | Inpatient (IN) | payer OTHER ==
[2020-02-12] MEDS ORDERED: Acetaminophen 500 MG TAB ONE ×2 (02:12→02:24)
[2020-02-12] MEDS ORDERED: Azithromycin 500 MG VIAL ONE (02:24)
[2020-02-12] MEDS ORDERED: Hydroxychloroquine Sulfate 200 MG TAB PO SCH ×3 (02:30→09:00)
[2020-02-12 02:39] LABS: #Lymphocytes 1.5 thou/uL (1.20-3.40); #Monocytes 0.5 thou/uL (0.11-0.59); #Neutrophils 4.3 thou/uL (1.40-6.50); %Basophils 0.2 % (0.0-1.0); %Eosinophils 0.1 % (0.0-10.0); %Monocytes 8.5 % (0.0-10.0); %Neutrophils 67.1 % (42.0-75.0); Hemoglobin 16.9 g/dL (14.0-18.0); Mean Corpuscular HGB CONC 34.1 g/dL (32.0-36.0); Mean Corpuscular Hemoglobin 32.5 pg (27.0-31.0); Mean Corpuscular Volume 95.4 fL (78.0-98.0); Platelet Count 207 thou/uL (130-400); RBC Distribution Width 12.5 % (11.5-14.5); Red Blood Cell (RBC) Count 5.19 mill/uL (4.70-6.10); White Blood Cell (WBC) Count 6.4 thou/uL (4.8-10.8)
[2020-02-12 02:50] LABS: ALT (SGPT) 71 U/L (8-55); AST (SGOT) 123 U/L (5-34); Albumin 3.8 g/dL (3.5-5.0); Alkaline Phosphatase 56 U/L (40-110); Anion Gap 17 mmol/L (10-20); BUN (Urea Nitrogen) 12 mg/dL (8.4-25.7); Bilirubin, Total 0.7 mg/dL (0.2-1.2); Calc. Creatinine Clearance 0 mL/min (70-130); Calcium 9.2 mg/dL (7.8-10.44); Carbon Dioxide 24 mmol/L (22-29); Chloride 98 mmol/L (98-107); Estimated GFR-MDRD 65; Globulin 4.6 g/dL (2.4-3.5); Glucose 121 mg/dL (70-105); Potassium 4.2 mmol/L (3.5-5.1); Protein, Total 8.4 g/dL (6.0-8.3); Sodium 135 mmol/L (136-145)
[2020-02-12] MEDS ORDERED: Sodium Chloride 0.9% 1,000 ML IV SCH (04:45)
[2020-02-12] MEDS ORDERED: Acetaminophen 650 MG Suppository PR PRN (04:59)
[2020-02-12] MEDS ORDERED: HYDROcodone/Acetaminophen 5/325 mg Tablet PO PRN ×2 (04:59)
[2020-02-12] MEDS ORDERED: Promethazine HCl 12.5 MG in Sodium Chloride 0.9% 50 ML IVPB PRN (05:05)
[2020-02-12] MEDS ORDERED: Non-Formulary Item 1 EACH (Albuterol Sulfate 2 PUFF) INH PRN (05:07)
[2020-02-12] MEDS ORDERED: Dextrose 50% Abboject 50 ML SYRINGE SLOW IVP PRN (05:10)
[2020-02-12] MEDS ORDERED: Dextrose 5% in Water 1,000 ML IV PRN (05:10)
[2020-02-12] MEDS ORDERED: HumaLOG 300 UNITS/3 ML VIAL SC PRN (05:10)
[2020-02-12] MEDS ORDERED: Albuterol 200 PUFF (6.7GM INHALER) INH PRN (05:14)
--- NOTE | 2020-02-12 05:21 | PDOC.HHP ---
Hospitalist HPI - History of Present Illness abd pain cough History of Present Illness: Case of an 54y/o male with pmhx of DM who comes to hospital due to abd pain and cough. patient refers he was recently discharge 4 days ago after been hospitalize for covid 19. patient states that after been discharge he started with abdominal pain 6/10 non radiating located in b/l lower quadrants that is associated with nausea and diarrhea. he states ateleast 2-3 episodes of loose stool a day, pt is also complaining of worsening cough and fever for which he decided to come to hospital for evaluation. at the ed pateint was found to be tachycardic, tachypnic and febrile for which hospitalist was called for further management and evaluation. Hospitalist ROS - Review of Systems All other systems reviewed; all pertinent +/- noted in HPI/Subj Hospitalist History - Past Medical History Heme/Onc: reports: no pertinent history Hepatobiliary: reports: no pertinent history Psych: reports: no pertinent history Musculoskeletal: reports: no pertinent history Rheumatologic: reports: no pertinent history Renal/: reports: no pertinent history Endocrine: reports: no pertinent history, Diabetes - Past Surgical History Past Surgical History: reports: Appendectomy, Cholecystectomy - Family History Family History: reports: no pertinent history - Social History Smoking Status: Current every day smoker Alcohol: reports: None Drugs: reports: none Living Situation: With Family Occupation: Lives with mother in [place], disabled - Exam General Appearance: ill appearing Eye: PERRL, anicteric sclera ENT: normocephalic atraumatic, no oropharyngeal lesions Neck: supple, symmetric, no JVD, no thyromegaly Heart: RRR, no murmur, no gallops, diminshed peripheral pulses Respiratory: CTAB, no wheezes, no rales, no ronchi Gastrointestinal: soft, non-distended, normal bowel sounds, tender to palpation Extremities: no cyanosis, no clubbing, no edema Skin: normal turgor, no lesions, no rashes Neurological: cranial nerve grossly intact, normal sensation to touch Musculoskeletal: normal tone, normal strength, no muscle wasting Psychiatric: normal affect, normal behavior, A&O x 3, oriented to person Hospitalist Results - Labs Result Diagrams: 02/12/20 02:18 02/12/20 02:18 Lab results: WBC 6.4 thou/uL (4.8-10.8) 02/12/20 02:18 Hgb 16.9 g/dL (14.0-18.0) 02/12/20 02:18 Hct 49.5 % (42.0-52.0) 02/12/20 02:18 MCV 95.4 fL (78.0-98.0) 02/12/20 02:18 Plt Count 207 thou/uL (130-400) 02/12/20 02:18 Neutrophils % 67.1 % (42.0-75.0) 02/12/20 02:18 Sodium 135 mmol/L (136-145) L 02/12/20 02:18 Potassium 4.2 mmol/L (3.5-5.1) 02/12/20 02:18 Chloride 98 mmol/L (98-107) 02/12/20 02:18 Carbon Dioxide 24 mmol/L (22-29) 02/12/20 02:18 BUN 12 mg/dL (8.4-25.7) 02/12/20 02:18 Creatinine 1.38 mg/dL (0.7-1.3) H 02/12/20 02:18 Glucose 121 mg/dL (70-105) H 02/12/20 02:18 Lactic Acid 1.5 mmol/L (0.5-2.2) 02/12/20 02:18 Calcium 9.2 mg/dL (7.8-10.44) 02/12/20 02:18 Total Bilirubin 0.7 mg/dL (0.2-1.2) 02/12/20 02:18 AST 123 U/L (5-34) H 02/12/20 02:18 ALT 71 U/L (8-55) H 02/12/20 02:18 Alkaline Phosphatase 56 U/L (40-110) 02/12/20 02:18 Serum Total Protein 8.4 g/dL (6.0-8.3) H 02/12/20 02:18 Albumin 3.8 g/dL (3.5-5.0) 02/12/20 02:18 - Radiology Interpretation CT scan - chest Status: report reviewed by me (b/l ground glass opacities) Hospitalist H&P A/P - Problem (1) Acute respiratory failure with hypoxemia Code(s): J96.01 - ACUTE RESPIRATORY FAILURE WITH HYPOXIA Status: Acute (2) COVID-19 Code(s): U07.1 - COVID-19 Status: Acute (3) DM type 2 (diabetes mellitus, type 2) Status: Acute Qualifiers: Diabetes mellitus intermediate designer insulin use: without fpc use (4) Obesity Code(s): E66.9 - OBESITY, UNSPECIFIED Status: Chronic Qualifiers: Obesity classification: adult class 3 (BMI >= 40) Body mass index: BMI 40.0 -44.9 (5) Diarrhea Code(s): R19.7 - DIARRHEA, UNSPECIFIED Status: Acute - Plan Plan: covid 19 - patient with worsening symptoms of covid 19, will be readmitted for observation and monitoring. dr marquez consulted hypoxic resp failure- 85% in RA currently on 4L, wean as tolerated dm - on accue check and sliding scale adjust as necessary diarrhea - counld b secondary to covid, cdif was ordered to r/o colitis, abd ct w/o any acute pathology
[2020-02-12 05:36] VITALS: BMI 41.5
[2020-02-12] MEDS: Sodium Chloride 0.9% 1,000 ML IV SCH ×2 (06:11→19:34)
[2020-02-12] MEDS ORDERED: Metoclopramide HCl 10 MG/2 ML VIAL IVP PRN (06:46)
--- NOTE | 2020-02-12 08:19 | CT ---
PRELIMINARY REPORT/[facility]/EMERGENCY AFTER HOURS PROCEDURE: CT Abdomen and Pelvis with Intravenous Contrast HISTORY: M54 presents to the ED via EMS with c/o cough, nausea and abdominal pain. Pt reprots he was hospitalized for COVID 19 and was discharged 4 days ago. Pt reprots he has experienced nausea and ab dominal pain since discharge COMPARISON: None provided. FINDINGS: LUNG BASES: Strandy and groundglass opacifications bilaterally. No pleural effusion. LIVER: Diffuse decrease in parenchymal density. GALLBLADDER/BILE DUCTS: Prior cholecystectomy. Nondilated bile ducts. PANCREAS: Unremarkable. SPLEEN: Unremarkable, except calcified granuloma. ADRENAL GLANDS: Unremarkable. KIDNEYS: Unremarkable. No hydronephrosis or hydroureter. STOMACH AND BOWEL: No obstruction or perforation. Fluid is seen throughout the majority of the colon . No wall thickening. No CT evidence of acute diverticulitis. APPENDIX: No CT evidence for appendicitis. RETRO/PERITONEUM: No free fluid. No free air. LYMPH NODES: No lymphadenopathy. PELVIC ORGANS: Unremarkable. VASCULATURE: No aortic aneurysm. Mild calcified atherosclerosis. BODY WALL: Small fat-containing umbilical hernia. BONES: No fracture or suspicious osseous abnormality. Degenerative changes of the spine. IMPRESSION: Diffuse colonic fluid, which is nonspecific and can be seen with enterocolitis, an ileus, or other di arrhea producing process. Diffuse hepatic steatosis. Strandy and groundglass lung opacifications bilaterally, likely due to hypoventilation/atelectasis. Superimposed infection not excluded. ELECTRONICALLY SIGNED BY: Manju Fernandes M.D. Feb 12, 2020 3:18:14 AM CDT This report is intended for review by the ordering physician only, in accordance of law. If you recei ve this report in error, please call [facility] at [phone]. FINAL REPORT ABDOMEN AND PELVIC CT SCAN WITH IV CONTRAST: EMERGENCY AFTER HOURS EXAM DATE: 02-12-2020 TIME: 2:57 A.M. FINDINGS: Linear and interstitial and ground glass opacity changes noted in both lower lobes without significan t pleural effusion. This could represent some subsegmental atelectasis or bilateral lower lobe atypic al pneumonitis involving viral etiologies. Fatty changes in the liver. Evidence for some fluid in the distal colon and rectum, evidence for nonspecific diarrhea. Small umbilical fat containing hernia. O ther findings as above. This report is in agreement with the preliminary report.
[2020-02-12] MEDS: Enoxaparin Sodium 40 MG/0.4 ML SYRINGE SC SCH (08:34)
[2020-02-12] MEDS: guaiFENesin ER 600 MG TAB PO SCH ×2 (08:34→19:34)
[2020-02-12] MEDS: Pantoprazole 40 MG VIAL IVP SCH ×2 (08:34→19:34)
[2020-02-12] MEDS ORDERED: Famotidine 20 MG TAB PO SCH (09:00)
[2020-02-12] MEDS: Albuterol 200 PUFF (6.7GM INHALER) INH SCH ×2 (09:27→16:06)
--- NOTE | 2020-02-12 09:27 | RAD ---
CHEST ONE VIEW: History: Cough. Comparison: 02-03-2020 FINDINGS: Increased linear and interstitial markings in the perihilar regions and lower lung zones with some li near changes in both bases having more the appearance of some subsegmental atelectasis versus patchy interstitial pneumonitis including viral pneumonitis. No significant confluent process. IMPRESSION: Some progressive linear and interstitial markings, particularly in the perihilar regions and lower rosaura ng zones, possibly representing some component of subsegmental atelectasis versus some worsening bila teral interstitial pneumonia including viral pneumonia. POS: [facility]
--- NOTE | 2020-02-12 10:43 | PDOC.HOSPP ---
- Subjective Encounter Date: 02/12/20 Encounter Time: 10:15 Subjective: no further diarrhea, had one episode last evening with abd pain in lower quadrants no abd pain, nausea or vomiting does not like hospital food no sob, spo2 on air is 90% was not using nebulizer as prescribed at home (was using only once prn) - Objective Vital Signs & Weight: Vital Signs (12 hours) Temp Pulse Resp BP Pulse Ox 02/12/20 08:30 98.2 F 74 18 135/63 95 02/12/20 04:59 95 02/12/20 04:20 99.3 F 83 18 132/62 94 L Weight Weight 250 lb 1.6 oz Result Diagrams: 02/12/20 02:18 02/12/20 02:18 Additional Labs: Accuchecks 02/12/20 08:57 POC Glucose 102 Hospitalist ROS - Medication Medications: Active Medications Generic Name Dose Route Start Last Admin Trade Name Freq PRN Reason Stop Dose Admin Albuterol Sulfate 2 puff 02/12/20 09:00 02/12/20 09:27 Proventil Hfa INH 2 puff TID MARY Administration Enoxaparin Sodium 40 mg 02/12/20 09:00 02/12/20 08:34 Lovenox SC 40 mg 0900 MARY Administration Guaifenesin 600 mg 02/12/20 09:00 02/12/20 08:34 Mucinex PO 600 mg Q12HR MARY Administration Hydroxychloroquine Sulfate 200 mg 02/12/20 09:00 02/12/20 08:34 Plaquenil PO 200 mg BID MARY Administration Sodium Chloride 1,000 mls @ 70 mls/hr 02/12/20 05:00 02/12/20 06:11 Normal Saline 0.9% IV 1,000 mls .[id number] MARY Administration Pantoprazole Sodium 40 mg 02/12/20 09:00 02/12/20 08:34 Protonix IVP 40 mg Q12HR MARY Administration Sodium Chloride 10 ml 02/12/20 09:00 02/12/20 08:34 Flush - Normal Saline IVF 10 ml Q12HR MARY Administration - Exam General Appearance: awake alert Eye: PERRL, anicteric sclera ENT: no oropharyngeal lesions, moist mucosa Neck: supple, no JVD Heart: no murmur, no gallops Respiratory: no wheezes, no rales, rhonchi Gastrointestinal: soft, non-tender, non-distended, normal bowel sounds, no guarding, no rigidity Extremities: no cyanosis, no edema Neurological: cranial nerve grossly intact, no focal deficits Psychiatric: normal affect, A&O x 3 Hosp A/P (1) Diarrhea Code(s): R19.7 - DIARRHEA, UNSPECIFIED Status: Acute Qualifiers: Diarrhea type: presumed infectious Qualified Code(s): R19.7 - Diarrhea, unspecified (2) COVID-19 Code(s): U07.1 - COVID-19 Status: Acute (3) DM type 2 (diabetes mellitus, type 2) Status: Acute Qualifiers: Diabetes mellitus skilled nursing insulin use: without skilled nursing use (4) HTN (hypertension) Code(s): I10 - ESSENTIAL (PRIMARY) HYPERTENSION Status: Acute Qualifiers: Hypertension type: essential hypertension Qualified Code(s): I10 - Essential (primary) hypertension (5) Obesity Code(s): E66.9 - OBESITY, UNSPECIFIED Status: Chronic Qualifiers: Obesity classification: adult class 3 (BMI >= 40) Body mass index: BMI 40.0 -44.9 (6) Tobacco abuse Code(s): Z72.0 - TOBACCO USE Status: Chronic - Plan diarrhea is resolving, had only 1 episode yest, CT shows fluid in colon stool cultures, likely covid 19 diarrhea? continue hydroxychloroquine, glipizide, alb inh prn oral solid diet hemostable counselled to lay on either side while sleeping, to ambulate and sit when awake
[2020-02-12] MEDS: Acetaminophen 325 MG TAB PO PRN (16:06)
--- NOTE | 2020-02-12 18:31 | CON ---
DATE OF CONSULTATION: 02/12/2020 HISTORY OF PRESENT ILLNESS: A 54-year-old who has a history of recent admission for COVID-19 infection with pneumonia. He was stable and was discharged home, but then he started coughing again and got scared, particularly in relationship to a bad outcome in one of his relatives who apparently is fighting for her life at [facility] in [place], and the patient now is back in the hospital. He is okay. He is coughing a little bit, not much dyspnea anymore. No vomiting. Little bit of diarrhea. The abdominal pain is mostly when he coughs. No genitourinary symptoms. No joint symptoms. No neurological symptoms. MEDICAL HISTORY: 1. Recent diagnosis of COVID-19. 2. History of appendectomy. 3. Cholecystectomy. SOCIAL HISTORY: He smokes still, has smoked for 20 years. Lives in town with family. ALLERGIES: NONE. CURRENT MEDICATIONS: 1. Tylenol. 2. [place]. 3. Proventil. 4. Lovenox. 5. Mucinex. 6. Plaquenil. PHYSICAL EXAMINATION: VITAL SIGNS: His T-max 100.2. Other vital signs are normal. His O2 saturations are 91 on room air, 95 on 4 L. SKIN: Normal. NODES: No lymphadenopathy. HEENT: Ocular movements conjugate. Oral cavity normal. Numerous teeth in place and is in fairly decent shape. LUNGS: Symmetric air entry. Faint crackles here and there. HEART: S1 and S2. Regular rate. ABDOMEN: Soft, not distended or tender. EXTREMITIES: No edema. Pulses are 1+ in dorsalis pedis. Moves extremities equally. LABORATORY STUDIES: Sodium 135 and creatinine 1.38 and is little bit higher than previously. AST is at 123 am, ALT is up to 71, and albumin 3.8. Ferritin 2700. CRP 8.06. D-dimer is up a little bit to 1.03. The patient had abdomen and pelvis CT, which showed fluid in the colon. A chest x-ray with bibasilar atelectasis/interstitial areas of consolidation. ASSESSMENT: 1. COVID-19 infection. 2. Persistence of cough. 3. Evidence of intestinal disease as well as either likely myositis. PLAN: We will check CK. Discontinue hydroxychloroquine and continue monitoring clinical course. He probably could have stayed home and I do not think he would need to be managed in the hospital situation, but he got scared from poor outcome in a family member and he came straight to the hospital because of 4 days after discharge he is still having symptoms. Job ID: [id number]
[2020-02-13] MEDS: Albuterol 200 PUFF (6.7GM INHALER) INH SCH ×4 (01:31→20:52)
[2020-02-13 05:49] LABS: #Lymphocytes 1.1 thou/uL (1.20-3.40); #Monocytes 0.5 thou/uL (0.11-0.59); #Neutrophils 5.3 thou/uL (1.40-6.50); %Basophils 0.1 % (0.0-1.0); %Eosinophils 0.2 % (0.0-10.0); %Lymphocytes 16.1 % (21.0-51.0); %Monocytes 6.8 % (0.0-10.0); %Neutrophils 76.7 % (42.0-75.0); Hemoglobin 14.9 g/dL (14.0-18.0); Mean Corpuscular HGB CONC 32.9 g/dL (32.0-36.0); Mean Corpuscular Hemoglobin 31.1 pg (27.0-31.0); Mean Corpuscular Volume 94.6 fL (78.0-98.0); Mean Platelet Volume 7.9 fL (7.4-10.4); Platelet Count 233 thou/uL (130-400); RBC Distribution Width 12.5 % (11.5-14.5); Red Blood Cell (RBC) Count 4.79 mill/uL (4.70-6.10)
[2020-02-13 06:12] LABS: ALT (SGPT) 69 U/L (8-55); AST (SGOT) 112 U/L (5-34); Albumin 3.2 g/dL (3.5-5.0); Alkaline Phosphatase 45 U/L (40-110); Anion Gap 14 mmol/L (10-20); BUN (Urea Nitrogen) 9 mg/dL (8.4-25.7); Bilirubin, Total 0.5 mg/dL (0.2-1.2); Calc. Creatinine Clearance 114 mL/min (70-130); Calcium 8.3 mg/dL (7.8-10.44); Carbon Dioxide 20 mmol/L (22-29); Chloride 104 mmol/L (98-107); Estimated GFR-MDRD 77; Glucose 126 mg/dL (70-105); Lipase 44 U/L (8-78); Potassium 4.3 mmol/L (3.5-5.1); Protein, Total 7.2 g/dL (6.0-8.3); Sodium 134 mmol/L (136-145)
[2020-02-13] MEDS: guaiFENesin ER 600 MG TAB PO SCH ×2 (08:59→20:40)
[2020-02-13] MEDS: Pantoprazole 40 MG VIAL IVP SCH (08:59)
[2020-02-13] MEDS: Enoxaparin Sodium 40 MG/0.4 ML SYRINGE SC SCH (08:59)
[2020-02-13] MEDS: Sodium Chloride 0.9% 1,000 ML IV SCH (09:35)
--- NOTE | 2020-02-13 11:02 | PDOC.HOSPP ---
- Subjective Encounter Date: 02/13/20 Encounter Time: 08:45 Subjective: no further diarrhea, had semiformed stool last evening, no nausea has cough and fever no abd pain today - Objective Vital Signs & Weight: Vital Signs (12 hours) Temp Pulse Resp BP Pulse Ox 02/13/20 08:00 100.4 F H 100 18 143/62 H 90 L 02/13/20 01:23 102.5 F H 95 20 154/67 H 90 L Weight Admit Weight 250 lb Weight 250 lb 1.6 oz I&O: 02/12/20 02/13/20 02/14/20 06:59 06:59 06:59 Intake Total 1640 Output Total 1625 Balance 15 Result Diagrams: 02/13/20 05:24 02/13/20 05:24 Additional Labs: Accuchecks 02/13/20 02/12/20 09:16 19:43 POC Glucose 118 H 163 H Hospitalist ROS - Medication Medications: Active Medications Generic Name Dose Route Start Last Admin Trade Name Freq PRN Reason Stop Dose Admin Acetaminophen 650 mg 02/12/20 04:59 02/12/20 16:06 Tylenol PO 650 mg Q4H PRN Administration Headache/Fever/Mild Pain (1-3) Albuterol Sulfate 2 puff 02/12/20 09:00 02/13/20 09:35 Proventil Hfa INH 2 puff TID MARY Administration Enoxaparin Sodium 40 mg 02/12/20 09:00 02/13/20 08:59 Lovenox SC 40 mg 0900 MARY Administration Guaifenesin 600 mg 02/12/20 09:00 02/13/20 08:59 Mucinex PO 600 mg Q12HR MARY Administration - Exam General Appearance: awake alert Eye: PERRL, anicteric sclera ENT: no oropharyngeal lesions, moist mucosa Neck: supple, no JVD Heart: RRR, no murmur Respiratory: no wheezes, no rales, rhonchi Gastrointestinal: soft, non-tender, non-distended, normal bowel sounds Extremities: no cyanosis, no edema Neurological: cranial nerve grossly intact, no focal deficits Psychiatric: normal affect, A&O x 3 Hosp A/P (1) Diarrhea Code(s): R19.7 - DIARRHEA, UNSPECIFIED Status: Resolved Qualifiers: Diarrhea type: presumed infectious Qualified Code(s): R19.7 - Diarrhea, unspecified (2) COVID-19 Code(s): U07.1 - COVID-19 Status: Acute (3) DM type 2 (diabetes mellitus, type 2) Status: Acute Qualifiers: Diabetes mellitus exterminator helper insulin use: without mcc use (4) HTN (hypertension) Code(s): I10 - ESSENTIAL (PRIMARY) HYPERTENSION Status: Acute Qualifiers: Hypertension type: essential hypertension Qualified Code(s): I10 - Essential (primary) hypertension (5) Obesity Code(s): E66.9 - OBESITY, UNSPECIFIED Status: Chronic Qualifiers: Obesity classification: adult class 3 (BMI >= 40) Body mass index: BMI 40.0 -44.9 (6) Tobacco abuse Code(s): Z72.0 - TOBACCO USE Status: Chronic - Plan diarrhea has resolved, had only 1 episode prior to admission, CT shows fluid in colon stool cultures, likely covid 19 diarrhea?, cdiff is -ve continue glipizide, alb inh prn. Has finished course of hydroxychloroquine. tolerating solid diet hemostable, tmax of around 102, inflammatory markers are still high. counselled to lay on either side while sleeping, to ambulate and sit when awake was diagnosed with new onset dm and htn on recent admission for covid may dc in am with his mother in room 237 (they live together at home to help each other) will need close f/u with PCP and
[2020-02-13] MEDS ORDERED: Ibuprofen 200 MG TAB PO SCH (16:45)
[2020-02-13] MEDS: Calcium Carbonate 500 MG ChewTAB PO PRN (18:16)
[2020-02-14] MEDS: Enoxaparin Sodium 40 MG/0.4 ML SYRINGE SC SCH (08:24)
[2020-02-14] MEDS: guaiFENesin ER 600 MG TAB PO SCH ×2 (08:24→19:38)
[2020-02-14] MEDS: Albuterol 200 PUFF (6.7GM INHALER) INH SCH ×4 (08:52→23:35)
[2020-02-14] MEDS: Acetaminophen 325 MG TAB PO PRN ×3 (08:52→23:57)
--- NOTE | 2020-02-14 12:48 | PDOC.HOSPP ---
- Subjective Encounter Date: 02/14/20 Encounter Time: 12:47 Subjective: DOING WELL, NO COMPLAINS - Objective Vital Signs & Weight: Vital Signs (12 hours) Temp Pulse Resp BP Pulse Ox 02/14/20 08:00 102.3 F H 98 28 H 146/76 H 91 L 02/14/20 04:00 99.9 F H 95 20 167/96 H 90 L Weight Admit Weight 250 lb Weight 250 lb 1.6 oz I&O: 02/13/20 02/14/20 02/15/20 06:59 06:59 06:59 Intake Total 1640 400 Output Total 1625 300 Balance 15 100 Result Diagrams: 02/13/20 05:24 02/13/20 05:24 Additional Labs: Accuchecks 02/13/20 21:42 POC Glucose 124 H Hospitalist ROS - Review of Systems Constitutional: reports: fever Respiratory: reports: cough, dry, shortness of breath - Medication Medications: Active Medications Generic Name Dose Route Start Last Admin Trade Name Freq PRN Reason Stop Dose Admin Acetaminophen 650 mg 02/12/20 04:59 02/14/20 08:52 Tylenol PO 650 mg Q4H PRN Administration Headache/Fever/Mild Pain (1-3) Albuterol Sulfate 2 puff 02/12/20 09:00 02/14/20 08:52 Proventil Hfa INH 2 puff TID MARY Administration Calcium Carbonate 1,000 mg 02/13/20 18:08 02/13/20 18:16 Tums PO 1,000 mg Q6H PRN Administration Indigestion Enoxaparin Sodium 40 mg 02/12/20 09:00 02/14/20 08:24 Lovenox SC 40 mg 0900 MARY Administration Guaifenesin 600 mg 02/12/20 09:00 02/14/20 08:24 Mucinex PO 600 mg Q12HR MARY Administration Pantoprazole Sodium 40 mg 02/14/20 09:00 02/14/20 08:24 Protonix PO 40 mg DAILY MARY Administration - Exam Eye: PERRL, anicteric sclera ENT: normocephalic atraumatic, no oropharyngeal lesions Neck: supple, no JVD, no thyromegaly Heart: RRR, no murmur, no gallops, no rubs Respiratory: CTAB, no wheezes, no rales Gastrointestinal: soft, non-tender, non-distended Extremities: no cyanosis, no clubbing, no edema Hosp A/P - Plan old records reviewed/req diarrhea has resolved, had only 1 episode prior to admission, CT shows fluid in colon stool cultures, likely covid 19 diarrhea?, cdiff is -ve continue glipizide, alb inh prn. Has finished course of hydroxychloroquine. tolerating solid diet hemostable, tmax of around 102, inflammatory markers are still high. Continue Oxygen at 4 liters NC counselled to lay on either side while sleeping, to ambulate and sit when awake was diagnosed with new onset dm and htn on recent admission for covid may dc in am with his mother in room 237 (they live together at home to help each other) will need close f/u with PCP and
--- NOTE | 2020-02-14 15:01 | PRG ---
DATE OF SERVICE: 02/14/2020 SUBJECTIVE: Mr. Nice is sitting by the bedside, playing video games in his cellphone. He was having some issues with desaturation, I had to go up on his O2 supplementation. He is coughing, but not as much as before. OBJECTIVE: VITAL SIGNS: Still having fever up to 102.3 recently. His BP is 130/71, pulse 96, respirations 20 to 28, O2 saturation was down to 86 and now went up to 92 with 4 L nasal cannula. We just placed him in a prone position to repeat the oximetry. LUNGS: Otherwise, his lungs sound clear. HEART: S1 and S2. Regular rate. ABDOMEN: Soft, not distended. LABORATORY DATA: White cell count 7.0 and hemoglobin 14. CK is 363. CRP last one was 8.06, which is much higher than the previous ones. The ferritin was up to 2700. ASSESSMENT AND DISCUSSION: COVID-19 infection persistence of cough, worsening hypoxemia. His BCRSS scale number is 1 to 2. Chest x-ray has not been repeated. Looks like he has good compliance in his lungs and is probably more of a shunting physiology. We will place him in a prone position. Discontinue azithromycin at the moment. He is not ready to be discharged. If he goes home, he is going to be right back, so I think it would be not advisable to discharge him and therefore, his mother is going to have to stick around. Job ID: [id number]
[2020-02-14] MEDS: Calcium Carbonate 500 MG ChewTAB PO PRN (18:11)
[2020-02-15] MEDS: Albuterol 200 PUFF (6.7GM INHALER) INH SCH ×3 (06:30→23:10)
[2020-02-15] MEDS: Enoxaparin Sodium 40 MG/0.4 ML SYRINGE SC SCH (09:30)
[2020-02-15] MEDS: guaiFENesin ER 600 MG TAB PO SCH ×2 (09:30→20:39)
--- NOTE | 2020-02-15 15:26 | PDOC.HOSPP ---
- Subjective Encounter Date: 02/15/20 Encounter Time: 15:25 Subjective: continued NC Oxygen - Objective Vital Signs & Weight: Vital Signs (12 hours) Temp Pulse Resp BP BP Pulse Ox 02/15/20 12:30 98.9 F 93 22 H 160/74 H 90 L 02/15/20 09:30 99.3 F 92 24 H 158/73 H 91 L 02/15/20 03:52 99.4 F 87 28 H 141/65 H 90 L Weight Admit Weight 250 lb Weight 250 lb 1.6 oz I&O: 02/14/20 02/15/20 02/16/20 06:59 06:59 06:59 Intake Total 400 560 Output Total 300 425 Balance 100 135 Result Diagrams: 02/13/20 05:24 02/13/20 05:24 Additional Labs: Accuchecks 02/14/20 23:55 POC Glucose 125 H Hospitalist ROS - Review of Systems Constitutional: denies: fever, chills, sweats, weakness, malaise, other Eyes: denies: pain, vision change, conjunctivae inflammation, eyelid inflammation, redness, other ENT: denies: ear pain, ear discharge, nose pain, nose discharge, nose congestion , mouth pain, mouth swelling, throat pain, throat swelling, other Respiratory: reports: shortness of breath Cardiovascular: denies: chest pain, palpitations, orthopnea, paroxysmal noc. dyspnea, edema, light headedness, other Gastrointestinal: denies: nausea, vomiting, abdominal pain, diarrhea, constipation, melena, hematochezia, other Genitourinary: denies: dysuria, frequency, incontinence, hematuria, retention, other Musculoskeletal: denies: neck pain, shoulder pain, arm pain, back pain, hand pain, leg pain, foot pain, other - Medication Medications: Active Medications Generic Name Dose Route Start Last Admin Trade Name Freq PRN Reason Stop Dose Admin Acetaminophen 650 mg 02/12/20 04:59 02/14/20 23:57 Tylenol PO 650 mg Q4H PRN Administration Headache/Fever/Mild Pain (1-3) Albuterol Sulfate 2 puff 02/14/20 23:00 02/15/20 06:30 Proventil Hfa INH 2 puff 0700,1500,2300 MARY Administration Calcium Carbonate 1,000 mg 02/13/20 18:08 02/14/20 18:11 Tums PO 1,000 mg Q6H PRN Administration Indigestion Enoxaparin Sodium 40 mg 02/12/20 09:00 02/15/20 09:30 Lovenox SC 40 mg 0900 MARY Administration Guaifenesin 600 mg 02/12/20 09:00 02/15/20 09:30 Mucinex PO 600 mg Q12HR MARY Administration Pantoprazole Sodium 40 mg 02/14/20 09:00 02/15/20 09:30 Protonix PO 40 mg DAILY MARY Administration - Exam General Appearance: NAD, awake alert Eye: PERRL, anicteric sclera ENT: normocephalic atraumatic, no oropharyngeal lesions Neck: supple, symmetric, no JVD, no thyromegaly Heart: RRR, no murmur, no gallops, no rubs, normal peripheral pulses Respiratory: CTAB, no wheezes, no rales, no ronchi Gastrointestinal: soft, non-tender, non-distended, normal bowel sounds Extremities: no cyanosis, no clubbing, no edema Skin: normal turgor, no lesions, no rashes Neurological: cranial nerve grossly intact, normal sensation to touch Hosp A/P - Plan diarrhea has resolved, had only 1 episode prior to admission, CT shows fluid in colon stool cultures, likely covid 19 diarrhea?, cdiff is -ve continue glipizide, alb inh prn. Has finished course of hydroxychloroquine. tolerating solid diet hemostable, tmax of around 102, inflammatory markers are still high. Continue Oxygen at 4 liters NC counselled to lay on either side while sleeping, to ambulate and sit when awake was diagnosed with new onset dm and htn on recent admission for covid may dc in am with his mother in room 237 (they live together at home to help each other) will need close f/u with PCP and
[2020-02-15] MEDS: Acetaminophen 325 MG TAB PO PRN ×2 (15:58→23:29)
[2020-02-16] MEDS: Albuterol 200 PUFF (6.7GM INHALER) INH SCH ×2 (06:02→15:43)
[2020-02-16] MEDS: guaiFENesin ER 600 MG TAB PO SCH (09:15)
[2020-02-16] MEDS: Enoxaparin Sodium 40 MG/0.4 ML SYRINGE SC SCH (09:15)
[2020-02-16 16:51] VITALS: BP 131/74; TEMP 98.3
--- NOTE | 2020-02-16 17:34 | DIS ---
DATE OF ADMISSION: 02/12/2020 DATE OF DISCHARGE: 02/16/2020 ADMISSION DIAGNOSES: 1. Acute respiratory failure with hypoxemia. 2. COVID-19. 3. Diabetes. 4. Obesity. 5. Diarrhea. DISCHARGE DIAGNOSES: 1. Acute respiratory failure with hypoxemia. 2. COVID-19. 3. Diabetes. 4. Obesity. 5. Diarrhea. HISTORY OF PRESENT ILLNESS: This is a 54-year-old male with a past medical history of diabetes, who came to the hospital due to abdominal pain and cough. The patient was recently discharged 4 days ago after being hospitalized for COVID-19. The patient after discharge started having abdominal pain and diarrhea. The patient also was short of breath and was having incessant cough and fever. The patient in the ER was found to be tachycardic and tachypneic and febrile for which he was admitted to the hospital for further symptomatic management. The patient was kept in isolation, was treated with low-dose IV fluids. C difficile was negative. The patient was placed on 2 to 4 L of oxygen p.r.n. for his hypoxemia. The patient did well and subsequently was discharged on home oxygen with instruction to remain isolated for next 14 days at home. DISCHARGE INSTRUCTIONS: 1. Oxygen as required. 2. Follow up with your primary care physician. 3. Stay in strict isolation for next 2 weeks. 4. Activity as tolerated. 5. Heart healthy diet and diabetic diet. Job ID: [id number]
--- NOTE | 2020-02-17 08:05 | PQF ---
[employer] Account Service Associate Crystal Reports Winform Viewer JEFFREY POTTER [place] [id number] [id number] CLINICAL DOCUMENTATION CLARIFICATION FORM: POST DISCHARGE Addendum to original discharge summary date: ____ Late entry note date: __ DATE: 02/17/20 ATTN: Nat Landis Please exercise your independent, professional judgment in responding to the clarification form. Clinical indicators are provided on the bottom of this form for your review Can you pleas further clarify the diagnosis of the patient? Please check appropriate box(es): [ ] Sepsis due COVID 19 with Pneumonia [ ] Sepsis due COVID 19 without Pneumonia [ x ] COVID19 with pneumonia [ ] COVID19 without pneumonia [ ] Other diagnosis please specify [ ] Unable to determine In addition, please specify: Present on Admission (POA): [ x ] Yes [ ] No [ ] Unable to determine For continuity of documentation, please document condition throughout progress notes and discharge summary. Thank You. CLINICAL INDICATORS - SIGNS / SYMPTOMS / LABS Chest X ray 02/11- presenting some component of subsegmental atelectasis versus some worsening bilateral interstitial pneumonia including viral pneumonia Consult pg.1 Dr. Daniels- History of recent admission for COVID10 infection with Pneumonia H and P pg.1- at the ED patient was found to be tachycardic, tachypneic and febrile DS pg.1- Acute respiratory failure, COVID19 RISK FACTORS COVID19- H and P pg.2 Acute respiratory failure- H and P pg.2 Obesity- H and P pg.2 Smokes for 20 years Diarrhea- H and P pg.3 TREATMENTS: Chest X ray 02/01 Oxygen supplementation-H and P Infectious Consult Dr. Daniels 02/11 Azithromycin 500mg IV- MAR Albuterol sulfate 2 puff INH Q4H- MAR IV Fluids- DEC (This form is maintained as a part of the permanent medical record) 2014 [email or web address] All Rights Reserved [email or web address]
== END 2020-02-16 16:40 | disposition home or self-care (01) | DRG 177 ==
LOC: ERS 02:02 → 2SW 03:38
PROVIDERS: ADMIT Internal Medicine; ATTEND Internal Medicine
PROC: 8E0ZXY6 Isolation (ICD-10-PCS; principal; 2020-02-12)
DX: U07.1 COVID-19 (principal); J96.01 Acute respiratory failure with hypoxia; J12.89 Other viral pneumonia; E11.9 Type 2 diabetes mellitus without complications; E66.9 Obesity, unspecified; R19.7 Diarrhea, unspecified; R05 Cough; R50.9 Fever, unspecified; F17.210 Nicotine dependence, cigarettes, uncomplicated; I10 Essential (primary) hypertension; Z90.49 Acquired absence of other specified parts of digestive tract
CPT/HCPCS: 36415; 36416; 71045; 74177; 80053; 82550; 82728; 83605; 83690; 85025; 85379; 86140; 87040; 87324; 87449; 94760; 96365; 96366; C9113; J0456; J1650

== ENCOUNTER 2020-06-26 20:49 | Emergency (ER) | payer OTHER ==
[~2020-06-26 20:49] MED LIST: Iopamidol-370 76% 500 ML 1 ML ONE
--- NOTE | 2020-06-26 21:16 | RAD ---
Exam: Chest one view HISTORY:Cough Comparison: 02/12/2020 FINDINGS: Cardiac silhouette:Cardiomegaly Aorta: Unremarkable Pulmonary vessels: Normal Costophrenic angles: Clear LUNGS: No masses or consolidation. Pneumothorax: None Osseous abnormalities: None IMPRESSION: No acute cardiopulmonary process.
[2020-06-26 21:53] LABS: #Eosinphils 0.1 thou/uL (0.0-0.7); #Lymphocytes 2.9 thou/uL (1.20-3.40); #Monocytes 0.5 thou/uL (0.11-0.59); #Neutrophils 4.1 thou/uL (1.40-6.50); %Basophils 0.3 % (0.0-1.0); %Eosinophils 1.9 % (0.0-10.0); %Lymphocytes 37.4 % (21.0-51.0); %Monocytes 6.9 % (0.0-10.0); %Neutrophils 53.6 % (42.0-75.0); Hemoglobin 13.9 g/dL (14.0-18.0); Mean Corpuscular Hemoglobin 31.7 pg (27.0-31.0); Mean Corpuscular Volume 93.4 fL (78.0-98.0); Mean Platelet Volume 8.3 fL (7.4-10.4); Platelet Count 234 thou/uL (130-400); RBC Distribution Width 11.5 % (11.5-14.5); Red Blood Cell (RBC) Count 4.37 mill/uL (4.70-6.10); White Blood Cell (WBC) Count 7.7 thou/uL (4.8-10.8)
[2020-06-26 22:00] LABS: ALT (SGPT) 15 U/L (8-55); AST (SGOT) 20 U/L (5-34); Albumin 3.8 g/dL (3.5-5.0); Alkaline Phosphatase 55 U/L (40-110); Anion Gap 15 mmol/L (10-20); BUN (Urea Nitrogen) 11 mg/dL (8.4-25.7); Bilirubin, Total 0.4 mg/dL (0.2-1.2); Calc. Creatinine Clearance 0 mL/min (70-130); Calcium 8.9 mg/dL (7.8-10.44); Carbon Dioxide 22 mmol/L (22-29); Chloride 99 mmol/L (98-107); Estimated GFR-MDRD 64; Globulin 3.4 g/dL (2.4-3.5); Glucose 249 mg/dL (70-105); Protein, Total 7.2 g/dL (6.0-8.3); Sodium 132 mmol/L (136-145)
[2020-06-26] MEDS ORDERED: Acetaminophen 500 MG TAB ONE ×2 (22:16→22:19)
[2020-06-26] MEDS ORDERED: Ondansetron PF 4 MG/2 ML Vial ONE ×2 (22:17→22:19)
--- NOTE | 2020-06-26 22:28 | CT ---
EXAM: CT ABDOMEN AND PELVIS HISTORY: Hyperglycemia headache. Pain. COMPARISON: 02/12/2020 Procedure: Multiple contiguous axial images were obtained and a CT of the abdomen and pelvis with IV contrast. C oronal reformats were performed. FINDINGS: Lower Chest: Chronic changes Vessels: Normal caliber aorta. No periaortic fat stranding. Heart: Normal heart size. No significant pericardial effusion Abdomen: Portal vein:Patent Gallbladder: Surgically absent Liver: within normal limits. Pancreas: within normal limits. Spleen: within normal limits. Adrenals: within normal limits. Kidneys: Symmetric enhancement. No obstructive uropathy. Peritoneum: No ascites or free air, no fluid collection. Bowel: Limited evaluation due to the lack of oral contrast administration. No evidence of bowel obstr uction. Ileocecal junction is unremarkable. Appendix is not appreciated. No secondary signs of appendicitis. Stable fatty infiltration of the right hemicolon mucosa.. Scattered fecal material in a nondistended, nondilated colon. Mesentery and Retroperitoneum: No enlarged mesenteric or retroperitoneal lymph nodes. Abdominal Wall: Small umbilical hernia containing mesenteric fat Pelvis: Reproductive Organs: Reproductive organs are unremarkable. Pelvis: No mass, lymphadenopathy, free air or free fluid. Bladder: within normal limits. Bones: within normal limits. IMPRESSION: No evidence of acute intraabdominal\pelvic abnormality.
== END 2020-06-26 23:24 | disposition home or self-care (01) ==
LOC: ERS 20:49
DX: E86.0 Dehydration (principal); B34.9 Viral infection, unspecified; E11.9 Type 2 diabetes mellitus without complications; F17.210 Nicotine dependence, cigarettes, uncomplicated
CPT/HCPCS: 36415; 36416; 71045; 74177; 80053; 83605; 85025; 87040; 96361; 96374; J2405; Q9967

== ENCOUNTER 2020-10-14 19:21 | Emergency (ER) | payer OTHER ==
[2020-10-14 23:01] LABS: #Basophils 0.1 thou/uL (0.0-0.2); #Eosinphils 0.3 thou/uL (0.0-0.7); #Lymphocytes 3.7 thou/uL (1.20-3.40); #Monocytes 0.9 thou/uL (0.11-0.59); %Basophils 0.6 % (0.0-1.0); %Eosinophils 3.3 % (0.0-10.0); %Lymphocytes 36.9 % (21.0-51.0); %Monocytes 9.1 % (0.0-10.0); Hemoglobin 13.9 g/dL (14.0-18.0); Mean Corpuscular HGB CONC 33.8 g/dL (32.0-36.0); Mean Corpuscular Hemoglobin 31.9 pg (27.0-31.0); Mean Corpuscular Volume 94.5 fL (78.0-98.0); Mean Platelet Volume 6.9 fL (7.4-10.4); Platelet Count 297 thou/uL (130-400); RBC Distribution Width 12.1 % (11.5-14.5); Red Blood Cell (RBC) Count 4.36 mill/uL (4.70-6.10)
[2020-10-14 23:20] LABS: ALT (SGPT) 16 U/L (8-55); AST (SGOT) 24 U/L (5-34); Albumin 4.3 g/dL (3.5-5.0); Alkaline Phosphatase 66 U/L (40-110); Anion Gap 15 mmol/L (10-20); BUN (Urea Nitrogen) 14 mg/dL (8.4-25.7); Bilirubin, Total 0.4 mg/dL (0.2-1.2); Calc. Creatinine Clearance 0 mL/min (70-130); Calcium 9.8 mg/dL (7.8-10.44); Carbon Dioxide 28 mmol/L (22-29); Chloride 97 mmol/L (98-107); Globulin 4.5 g/dL (2.4-3.5); Glucose 114 mg/dL (70-105); Potassium 4.6 mmol/L (3.5-5.1); Protein, Total 8.8 g/dL (6.0-8.3); Sodium 135 mmol/L (136-145)
--- NOTE | 2020-10-14 23:34 | RAD ---
EXAM: CHEST ONE VIEW HISTORY: Cough COMPARISON: 06/26/2020 FINDINGS: Cardiac silhouette is magnified by projection but does appear enlarged and stable in size from prior study. Pulmonary vasculature is within normal limits. The lungs are clear. Calcified mediastinal and right hilar lymph nodes are again seen. Degenerative changes are seen in the spine. Chest is stab le when compared to prior study. IMPRESSION: 1. Cardiomegaly. 2. No acute cardiopulmonary process.
== END 2020-10-15 00:09 | disposition home or self-care (01) ==
LOC: ERS 19:21
DX: J44.9 Chronic obstructive pulmonary disease, unspecified (principal); E11.9 Type 2 diabetes mellitus without complications; I10 Essential (primary) hypertension; E78.00 Pure hypercholesterolemia, unspecified; F17.210 Nicotine dependence, cigarettes, uncomplicated; Z79.84 Long term (current) use of oral hypoglycemic drugs
CPT/HCPCS: 36415; 36416; 71045; 80053; 85025; 87804; 93005

== ENCOUNTER 2022-10-03 13:41 | Emergency (ER) | payer OTHER ==
[2022-10-03 14:27] LABS: #Eosinphils 0.2 thou/uL (0.0-0.7); #Lymphocytes 2.2 thou/uL (1.20-3.40); #Monocytes 0.5 thou/uL (0.11-0.59); #Neutrophils 3.5 thou/uL (1.40-6.50); %Basophils 0.4 % (0.0-1.0); %Eosinophils 3.6 % (0.0-10.0); %Lymphocytes 34.1 % (21.0-51.0); %Monocytes 7.3 % (0.0-10.0); %Neutrophils 54.7 % (42.0-75.0); Hemoglobin 13.5 g/dL (14.0-18.0); Mean Corpuscular HGB CONC 33.2 g/dL (32.0-36.0); Mean Corpuscular Hemoglobin 31.7 pg (27.0-31.0); Mean Corpuscular Volume 95.5 fl (78.0-98.0); Mean Platelet Volume 7.8 fL (7.4-10.4); Platelet Count 245 10x3/uL (130-400); RBC Distribution Width 12.6 % (11.5-14.5); Red Blood Cell (RBC) Count 4.27 mill/uL (4.70-6.10); White Blood Cell (WBC) Count 6.5 10x3/uL (4.8-10.8)
[2022-10-03 14:37] LABS: ALT (SGPT) 16 U/L (8-55); AST (SGOT) 15 U/L (5-34); Albumin 4.1 g/dL (3.5-5.0); Alkaline Phosphatase 65 U/L (40-110); Anion Gap 15 mmol/L (10-20); BUN (Urea Nitrogen) 9 mg/dL (8.4-25.7); Bilirubin, Total 0.5 mg/dL (0.2-1.2); Calc. Creatinine Clearance 0 mL/min (70-130); Calcium 9.3 mg/dL (7.8-10.44); Carbon Dioxide 25 mmol/L (22-29); Chloride 104 mmol/L (98-107); Estimated GFR 70; Globulin 2.9 g/dL (2.4-3.5); Glucose 293 mg/dL (70-105); Lipase 79 U/L (8-78); Potassium 4.5 mmol/L (3.5-5.1); Sodium 139 mmol/L (136-145)
[2022-10-03 15:17] LABS: SARS-CoV-2 NAA Rapid Test Not Detected (NotDetected)
== END 2022-10-03 15:50 | disposition home or self-care (01) ==
LOC: ERS 13:41
DX: R53.1 Weakness (principal); I10 Essential (primary) hypertension; E78.00 Pure hypercholesterolemia, unspecified; E11.9 Type 2 diabetes mellitus without complications; F17.210 Nicotine dependence, cigarettes, uncomplicated; Z20.822 Contact with and (suspected) exposure to COVID-19; Z79.84 Long term (current) use of oral hypoglycemic drugs
CPT/HCPCS: 36415; 71045; 80053; 83690; 84484; 85025; 93005

== ENCOUNTER 2023-05-07 10:57 | Outpatient (CLI) | payer OTHER | END 2023-05-07 10:58 | disposition home or self-care (01) | LOC: BICMRI 10:57 | PROVIDERS: ATTEND Family Medicine | DX: M47.26 Other spondylosis with radiculopathy, lumbar region (principal); M47.817 Spondylosis without myelopathy or radiculopathy, lumbosacral region; M48.07 Spinal stenosis, lumbosacral region; M25.78 Osteophyte, vertebrae; M48.061 Spinal stenosis, lumbar region without neurogenic claudication | CPT/HCPCS: 72100; 72148 ==

== ENCOUNTER 2025-08-22 13:22 | Inpatient (IN) | payer MEDICAID ==
[2025-08-22] MEDS ORDERED: Ondansetron PF 4 MG/2 ML Vial ONE ×2 (15:38→20:42)
[2025-08-22 16:16] LABS: #Basophils Less than 0.03 10x3/uL (0.0-0.2); #Eosinophils Less than 0.03 10x3/uL (0.0-0.7); #Monocytes 1.06 10x3/uL (0.11-0.59); #Neutrophils 8.38 10x3/uL (1.40-6.50); %Basophils 0.2 % (0.0-1.0); %Eosinophils 0.1 % (0.0-10.0); %Lymphocytes 13.2 % (21.0-51.0); %Monocytes 9.7 % (0.0-10.0); %Neutrophils 76.3 % (42.0-75.0); Hematocrit 47.8 % (42.0-52.0); Hemoglobin 15.9 g/dL (14.0-18.0); Mean Corpuscular Hemoglobin 29.3 pg (27.0-31.0); Mean Corpuscular Volume 88.2 fL (78.0-98.0); Platelet Count 338 10x3/uL (130-400); Red Blood Cell (RBC) Count 5.42 mill/uL (4.70-6.10); White Blood Cell (WBC) Count 10.97 10x3/uL (4.8-10.8)
[2025-08-22 16:47] LABS: ALT (SGPT) 17 U/L (Less than 45); AST (SGOT) 29 U/L (11-34); Albumin 3.6 g/dL (3.1-4.5); Alkaline Phosphatase 89 U/L (40-110); Anion Gap 27 mmol/L (10-20); BUN (Urea Nitrogen) 28 mg/dL (8.4-25.7); Bilirubin, Total 0.5 mg/dL (0.3-1.2); Calc. Creatinine Clearance 0 mL/min (70-130); Calcium 10.1 mg/dL (7.8-10.44); Carbon Dioxide 19 mmol/L (22-29); Chloride 93 mmol/L (98-107); Globulin 5.2 g/dL (2.4-3.5); Glucose 323 mg/dL (70-105); Lipase 41 U/L (8-78); Potassium 4.1 mmol/L (3.5-5.1); Sodium 135 mmol/L (136-145)
[2025-08-22 17:43] LABS: Actual Bicarbonate (HCO3v) 20.8 mEq/L (22-28); Base Excess -5.6 mEq/L (-2.0 to +3.0); Calcium, Ionized (venous) 1.18 mmol/L (1.16-1.32); Chloride (VBG) 96 mmol/L (98-106); Hematocrit-VBG 49 % (42.0-52.0); Hemoglobin (Hb) 16.8 g/dL (13.1-17.2); Potassium (VBG) 4.05 mmol/L (3.70-5.30); Sodium 142 mmol/L (133-146)
[2025-08-22 18:15] LABS: Magnesium 2.3 mg/dL (1.6-2.6)
[2025-08-22] MEDS ORDERED: NS 0.9% w/ 20 MEQ KCL 1,000 ML ONE (19:07)
[2025-08-22 19:09] LABS: Bacteria/HPF None Seen HPF (None Seen); CAUTI Indications for Culture Pelvic or flank pain; Glucose, Urine (Dipstick) Greater than 1000 mg/dL (Negative); Leukocyte Negative Leu/uL (Negative); Protein, Urine (Dipstick) Negative (Neg-Trace); RBC/HPF None Seen HPF (0-3); Specific Gravity, Urine 1.031 (1.002-1.036); WBC/HPF 0-3 HPF (0-3)
[2025-08-22 19:17] LABS: Urine Culture Reflex No No
[2025-08-22] MEDS ORDERED: Vancomycin (BATCH) 2.5 GM in Premix 1 BAG IVPB SCH (20:00)
[2025-08-22] MEDS ORDERED: Calcium Carbonate 500 MG ChewTAB PO PRN (20:59)
[2025-08-22] MEDS ORDERED: Ondansetron PF 4 MG/2 ML Vial IVP PRN (20:59)
[2025-08-22] MEDS ORDERED: Acetaminophen 325 MG TAB PO PRN (20:59)
[2025-08-22] MEDS ORDERED: Senokot S 8.6-50 MG TAB PO PRN (20:59)
[2025-08-22] MEDS ORDERED: Dextrose 50% Abboject 50 ML SYRINGE SLOW IVP PRN (20:59)
[2025-08-22] MEDS ORDERED: Electrolyte Replacement Protocol 1 EACH IVPB ONE (20:59)
[2025-08-22] MEDS ORDERED: NS 0.9% w/ 20 MEQ KCL 1,000 ML IV PRN ×2 (20:59)
[2025-08-22] MEDS ORDERED: D5 1/2 NS w/20 mEq KCL 1,000 ML IV PRN (20:59)
[2025-08-22] MEDS ORDERED: INSULIN REGULAR IN 0.9 % NACL 100 ML IVPB SCH (21:00)
[2025-08-22] MEDS ORDERED: Metoprolol Succinate XL 25 MG ER.TAB PO SCH (21:00)
[2025-08-22] MEDS ORDERED: Pharmacy to Dose VANC/CEFEPIME IVPB PRN (21:03)
[2025-08-22] MEDS ORDERED: PHOS-NAK 1 PKT PACK PO PRN (21:15)
[2025-08-22] MEDS ORDERED: Potassium Chloride 20 MEQ in Premix 1 BAG IVPB PRN (21:15)
[2025-08-22] MEDS ORDERED: Magnesium 2 GM/50 ML(in water) 2 GM in Premix 1 BAG IVPB PRN (21:15)
[2025-08-22] MEDS ORDERED: D5 1/2 NS w/20 mEq KCL 1,000 ML ONE (21:16)
[2025-08-22 21:41] VITALS: TEMP 98.5
[2025-08-22 22:00] LABS: Anion Gap 24 mmol/L (10-20); BUN (Urea Nitrogen) 23 mg/dL (8.4-25.7); Calc. Creatinine Clearance 0 mL/min (70-130); Calcium 8.8 mg/dL (7.8-10.44); Carbon Dioxide 14 mmol/L (22-29); Chloride 104 mmol/L (98-107); Glucose 217 mg/dL (70-105); Potassium 4.2 mmol/L (3.5-5.1); Sodium 138 mmol/L (136-145)
[2025-08-22] MEDS ORDERED: INSULIN REGULAR IN 0.9 % NACL 100 ML ONE (22:05)
[2025-08-23] MEDS ORDERED: Enoxaparin 40 MG (0.4 mL) SYRINGE SC SCH (09:00)
[2025-08-23] MEDS ORDERED: Aspirin Chewable 81 MG TAB PO SCH (09:00)
[2025-08-23] MEDS ORDERED: Vancomycin 1.5 GM / NS 500 ML VIAL-2-BAG IVPB SCH (17:00)
== END 2025-08-22 23:58 | disposition left against medical advice (07) | DRG 638 ==
LOC: ERS 13:22 → SUATTDRO 13:22 → ERHOLD 19:58
PROVIDERS: ADMIT Internal Medicine; ATTEND Internal Medicine
PROC: 0T9B70Z Drainage of Bladder with Drainage Device, Via Natural or Artificial Opening (ICD-10-PCS; principal; 2025-08-22)
DX: E11.10 Type 2 diabetes mellitus with ketoacidosis without coma (principal); E87.1 Hypo-osmolality and hyponatremia; N17.9 Acute kidney failure, unspecified; L73.2 Hidradenitis suppurativa; J44.9 Chronic obstructive pulmonary disease, unspecified; E78.5 Hyperlipidemia, unspecified; E87.8 Other disorders of electrolyte and fluid balance, not elsewhere classified; I12.9 Hypertensive chronic kidney disease with stage 1 through stage 4 chronic kidney disease, or unspecified chronic kidney disease; N18.9 Chronic kidney disease, unspecified; E66.9 Obesity, unspecified; B95.62 Methicillin resistant Staphylococcus aureus infection as the cause of diseases classified elsewhere; Z90.49 Acquired absence of other specified parts of digestive tract; Z98.890 Other specified postprocedural states; E11.22 Type 2 diabetes mellitus with diabetic chronic kidney disease; Z53.29 Procedure and treatment not carried out because of patient's decision for other reasons
CPT/HCPCS: 36415; 36416; 80053; 81001; 82010; 82805; 83605; 83690; 83735; 84100; 85025; 87040; 93005; 94760; 96361; 96365; 96366; 96368; 96375; 96376; 99292; J1815; J2405; J2543; J3373; J3480; J7030